=== PATIENT | female | born 1930 | race Caucasian/White ===

== ENCOUNTER 2016-07-15 11:34 | Inpatient (IN) | payer MEDICARE, OTHER, MEDICAID ==
[~2016-07-15] VITALS: Ht 162.6 cm; Wt 70.1 kg
[~2016-07-15 11:34] MED LIST: AC325T PO; ACET-2264 PO; ALPR.25T PO; ALPR.5T PO; AMT10T PO; ATN50T PO; BISM262O24 PO; CALC-719 PO; CAPS42.54 TOP; CEFD300C PO; CHOL200025 PO; CIME-48 PO; CRAN3875 PO; CYAN500L PO; DEXT1DRO7 OU; DOCU-243 PO; ESTR0.5T PO; ESTR1POW11 MC; FIBERSTAT PO; FLUT16SP NSEACH; FRSM40T PO; GUAI5SYR PO; HYDR-33 PO; HYDR-3702 PO; IPRA3AMP11 INH; LD5PT TOP; LOSA1TAB16 PO; LRT10T PO; MAGN400O7 PO; NFIPRATRNS NSEACH; NST15PW TOP; PALI1.5T PO; POLY17PO2 PO; POTA10TA10 PO; POTA20LI3 PO; SALS500T16 PO; SERT100T PO; SULF1TAB35 PO; TR025C15 EXT; TRAM100T26 PO; TRM50T PO; VERA180C2 PO; VERA180C4 PO; [UNRECOGNIZED DRUG - CODE] TOP; [UNRECOGNIZED DRUG - CODE] TOP
--- OUTSIDE RECORDS SUMMARY | 2016-07-15 11:39 | XMS REPORT | Continuity of Care Document ---
Author Author [facility] Address Unknown Phone Unavailable Allergies Active Description Code Type Severity Reaction Onset Reported/Identified Relationship to Patient Clinical Status Yes ALBERT Inhibitors [id number] Drug Allergy Unknown N/A 11/25/2015 Yes Antihistamines - Alkylamine [id number] Drug Allergy Unknown N/A 11/25/2015 Yes Penicillins [id number] Drug Allergy Unknown N/A 11/25/2015 Yes Sulfa (Sulfonamide Antibiotics) [id number] Drug Allergy Unknown N/A 11/25/2015 Medications Problems Date Dx Coded Attending Type Code Diagnosis Diagnosed By 09/06/2014 Ot V64.3 09/06/2014 ZEYNEP KINNEY MD Ot 296.80 BIPOLAR DISORDER, UNSPECIFIED 09/06/2014 ZEYNEP KINNEY MD Ot 307.9 SPECIAL SYMPTOM NEC/NOS 09/12/2014 Ot V64.3 10/27/2014 Ot V64.3 03/26/2015 DEXTER BRADFORD MD Ot B95.4 OTH STREPTOCOCCUS THE CAUSE OF DISEAS 03/26/2015 DEXTER BRADFORD MD Ot E86.0 DEHYDRATION 03/26/2015 DEXTER BRADFORD MD Ot E87.6 HYPOKALEMIA 03/26/2015 DEXTER BRADFORD MD Ot I10 ESSENTIAL (PRIMARY) HYPERTENSION 03/26/2015 DEXTER BRADFORD MD Ot I35.0 NONRHEUMATIC AORTIC (VALVE) STENOSIS 03/26/2015 DEXTER BRADFORD MD Ot I50.21 ACUTE SYSTOLIC (CONGESTIVE) HEART FAILUR 03/26/2015 DEXTER BRADFORD MD Ot J18.9 PNEUMONIA, UNSPECIFIED ORGANISM 03/26/2015 DEXTER BRADFORD MD Ot J80 ACUTE RESPIRATORY DISTRESS SYNDROME 03/26/2015 DEXTER BRADFORD MD Ot K59.00 CONSTIPATION, UNSPECIFIED 03/26/2015 DEXTER BRADFORD MD Ot M51.34 OTHER INTERVERTEBRAL DISC DEGENERATION, 03/26/2015 TYSON BOLAND MD, DEXTER Cabrera Ot M54.9 DORSALGIA, UNSPECIFIED 03/26/2015 DEXTER BRADFORD MD Ot N17.9 ACUTE KIDNEY FAILURE, UNSPECIFIED 03/26/2015 DEXTER BRADFORD MD Ot R33.9 RETENTION OF URINE, UNSPECIFIED 03/26/2015 DEXTER BRADFORD MD Ot W06.XXXA FALL FROM BED, INITIAL ENCOUNTER 03/26/2015 DEXTER BRADFORD MD Ot Y92.193 BEDROOM IN [facility] A 04/19/2015 Ot M79.602 04/19/2015 Ot W06.XXXA 04/19/2015 Ot Y92.129 04/20/2015 Ot M79.602 04/20/2015 Ot W06.XXXA 04/20/2015 Ot Y92.129 04/20/2015 RAGHU HENDRIX MD Ot I50.21 04/20/2015 RAGHU HENDRIX MD Ot J18.9 05/01/2015 RAGHU HENDRIX MD Ot I50.21 05/01/2015 RAGHU HENDRIX MD Ot J18.9 05/01/2015 Ot M79.602 05/01/2015 Ot W06.XXXA 05/01/2015 Ot Y92.129 05/23/2015 RAGHU HENDRIX MD Ot I50.21 05/23/2015 RAGHU HENDRIX MD Ot J18.9 06/20/2015 Ot V64.3 NO PROC FOR REASONS NEC 06/20/2015 Ot M79.602 PAIN IN LEFT ARM 06/20/2015 Ot W06.XXXA FALL FROM BED, INITIAL ENCOUNTER 06/20/[address] IN ALF PLACE 06/20/2015 RAGHU HENDRIX MD Ot I50.21 ACUTE SYSTOLIC (CONGESTIVE) HEART FAILUR 06/20/2015 RAGHU HENDRIX MD Ot J18.9 PNEUMONIA, UNSPECIFIED ORGANISM 06/20/2015 RAGHU HENDRIX MD Ot I50.21 ACUTE SYSTOLIC (CONGESTIVE) HEART FAILUR 06/20/2015 RAGHU HENDRIX MD Ot J18.9 PNEUMONIA, UNSPECIFIED ORGANISM 11/15/2015 CANDELARIO YANEZ, VESTA Lind Ot E87.6 HYPOKALEMIA 11/15/2015 VESTA PALOMINO DO Ot I10 ESSENTIAL (PRIMARY) HYPERTENSION 11/15/2015 PALOMINO DO VESTA Lind Ot I44.7 LEFT BUNDLE-BRANCH BLOCK, UNSPECIFIED 11/15/2015 PALOMINO DO VESTA Lind Ot R41.0 DISORIENTATION, UNSPECIFIED 11/15/2015 PALOMINO VESTA YANEZ Lelo Ot R60.9 EDEMA, UNSPECIFIED 11/15/2015 PALOMINO DO VESTA Lind Ot Z86.73 PRSNL HX OF TIA (TIA), AND CEREB INFRC W 11/26/2015 PALOMINO DO VESTA Lind Ot E87.6 HYPOKALEMIA 11/26/2015 PALOMINOVESTA Napoles DO Lelo Ot I10 ESSENTIAL (PRIMARY) HYPERTENSION 11/26/2015 PALOMINO DO VESTA Lind Ot I44.7 LEFT BUNDLE-BRANCH BLOCK, UNSPECIFIED 11/26/2015 CANDELARIO YANEZ VESTA Lelo Ot R41.0 DISORIENTATION, UNSPECIFIED 11/26/2015 PALOMINO DO, VESTA Lind Ot R60.9 EDEMA, UNSPECIFIED 11/26/2015 PALOMINO VESTA YANEZ Lelo Ot Z86.73 PRSNL HX OF TIA (TIA), AND CEREB INFRC W 11/27/2015 NEEL DAVIS, SHEKHAR Cabrera Ot I10 ESSENTIAL (PRIMARY) HYPERTENSION 11/27/2015 NEEL DAVIS, SHEKHAR Cabrera Ot I34.1 NONRHEUMATIC MITRAL (VALVE) PROLAPSE 11/27/2015 NEEL DAVIS, SHEKHAR Cabrera Ot I49.9 CARDIAC ARRHYTHMIA, UNSPECIFIED 11/27/2015 NEEL DAVIS, SHEKHAR Cabrera Ot N17.9 ACUTE KIDNEY FAILURE, UNSPECIFIED 11/27/2015 NEEL DAVIS, SHEKHAR Cabrera Ot R41.0 DISORIENTATION, UNSPECIFIED 11/27/2015 NEEL DAVIS, SHEKHAR Cabrera Ot S40.012A CONTUSION OF LEFT SHOULDER, INITIAL ENCO 11/27/2015 SHEKHAR SHAIKH MD Ot W19.XXXA UNSPECIFIED FALL, INITIAL ENCOUNTER 11/27/2015 SHEKHAR SHAIKH MD Ot Z51.5 ENCOUNTER FOR PALLIATIVE CARE 11/27/2015 SHEKHAR SHAIKH MD Ot Z91.81 HISTORY OF FALLING 11/28/2015 AMALIA POWELL MD Ot Z53.9 PROCEDURE AND TREATMENT NOT CARRIED OUT , 11/29/2015 AMALIA POWELL MD, Ot Z53.9 PROCEDURE AND TREATMENT NOT CARRIED OUT , 12/06/2015 LOKESH POWELL MD, Ot N39.0 URINARY TRACT INFECTION, SITE NOT SPECIF 12/24/2015 LOKESH POWELL MD, Ot N39.0 URINARY TRACT INFECTION, SITE NOT SPECIF 01/10/2016 LOKESH POWELL MD, Ot N39.0 URINARY TRACT INFECTION, SITE NOT SPECIF 01/14/2016 AMALIA POWELL MD, Ot Z53.9 PROCEDURE AND TREATMENT NOT CARRIED OUT , 01/16/2016 LOKESH POWELL MD, Ot N39.0 URINARY TRACT INFECTION, SITE NOT SPECIF 01/25/2016 LOKESH POWELL MD, Ot N39.0 URINARY TRACT INFECTION, SITE NOT SPECIF 01/31/2016 AMALIA POWELL MD, Ot Z53.9 PROCEDURE AND TREATMENT NOT CARRIED OUT , 01/31/2016 LOKESH POWELL MD, Ot N39.0 URINARY TRACT INFECTION, SITE NOT SPECIF 03/20/2016 RAGHU HENDRIX MD Ot I50.21 ACUTE SYSTOLIC (CONGESTIVE) HEART FAILUR 03/20/2016 RAGHU HENDRIX MD, Ot J18.9 PNEUMONIA, UNSPECIFIED ORGANISM Procedures Results Test Result Range UA CULTURE IF INDICATED* - 11/15/15 15:39 COLLECTION METHOD CLEAN CATCH Color of urine by auto Yellow Urine appearance determination Clear Urine pH measurement by automated test strip 6.5 5.0 - 8.0 Specific gravity of urine by automated test strip 1.015 1.005-1.030 Urine protein measurement by test strip (mass/volume) Negative Negative Urine glucose detection by automated test strip Negative Negative Urine erythrocytes count by automated test strip (number/volume) Negative Negative Urine ketones detection by automated test strip Trace Negative Urine nitrite detection by test strip Negative Negative Urine total bilirubin detection by automated test strip Negative Negative Urine urobilinogen measurement by automated test strip (mass/volume) 0.2 0.2-1.0 Urine leukocyte esterase detection by dipstick Negative Negative Complete blood count (CBC) with automated white blood cell (WBC) differential - 11/15/15 16:07 Blood automated leukocyte count 8.39 4.0 -11.0 Erythrocytes 4.54 4.00-5.00 12.0-16.0;g/dL 13.1 12.0-15.5 Hematocrit 38.20 35.00-45.00 Automated erythrocyte mean corpuscular volume 84 80-100 Mean corpuscular hemoglobin (MCH) determination 28.9 26.0-34.0 Automated erythrocyte mean corpuscular hemoglobin concentration measurement ( mass/volume) 34.3 31.0-37.0 Erythrocyte distribution width 14.3 11.8 -15.6 Automated blood platelet count 184 150- 450 Automated blood platelet mean volume measurement 11.6 6.0-9.5 Automated neutrophil percentage 61 51- 67 Lymphocytes/100 leukocytes 23 20-46 Automated monocyte percentage 12 3-11 Eosinophil count auto 3 0-4 Automated basophil percentage 1 0-2 Automated blood neutrophil count 5.1 Blood lymphocytes count (number/volume) 1.9 Automated blood monocyte count 1.0 Blood absolute eosinophil count 0.2 Basophils 0.1 LACTIC ACID - 11/15/15 16:07 LACTIC ACID 2.1 0.7-2.1 Prothrombin time (PT) with international normalized ratio (INR) - 11/15/15 16: 07 Prothrombin time (PT) in platelet poor plasma by coagulation assay 14.9 11.6-14.2 INR in platelet poor plasma by coagulation assay 1.2 0.8-1.4 Comprehensive metabolic panel - 11/15/15 16:07 Sodium measurement 123 70-110 Carbon dioxide measurement 29 22-29 Serum or plasma anion gap 20.4 3-15 BLOOD UREA NITROGEN 21 7-18 CREATININE SERUM 1.35 0.6-1.2 Brucella species antibody panel (IgG, IgM) 16 10-20 Estimated glomerular filtration rate (GFR) 45.0 Estimated glomerular filtration rate (GFR) non- 37.2 OSMOLALITY,CALCULATED 278 280-300 CALCIUM 10.5 8.8-10.8 Calculated ionized calcium measurement 4.2 3.8-4.6 BILIRUBIN,TOTAL 0.6 0.1-1.0 Serum or plasma alkaline phosphatase measurement 111 38-126 ASPARTATE AMINO TRANSFERASE 45 15-37 ALANINE AMINOTRANSFERASE 34 30-65 Serum or plasma total protein measurement 8.4 6.4-8.5 Serum or plasma albumin measurement 4.6 3.4-5.0 Serum or plasma albumin/globulin mass ratio 1.210 1.1-1.8 Serum or plasma creatine kinase measurement - 11/15/15 16:07 Serum or plasma creatine kinase measurement 53 30-135 Serum or plasma creatine kinase MB measurement - 11/15/15 16:07 Serum or plasma creatine kinase MB measurement 1.1 0.0-6.0 TROPONIN I* - 11/15/15 16:07 TROPONIN I 0.059 0.010-0.080 NT-Pro BNP - 11/15/15 16:07 NT-Pro BNP 756 0-450 THYROID STIMULATING HORMONE* - 11/15/15 16:07 THYROID STIMULATING HORMONE 2.55 0.46- 4.68 C REACTIVE PROTEIN* - 11/15/15 16:07 C REACTIVE PROTEIN* 1.20 0.0-0.9 Bacterial blood culture - 11/15/15 16:07 Bacterial blood culture NG5 UA CULTURE IF INDICATED* - 11/23/15 08:30 COLLECTION METHOD CLEAN CATCH Color of urine by auto Yellow Urine appearance determination Clear Urine pH measurement by automated test strip 7.5 5.0 - 8.0 Specific gravity of urine by automated test strip 1.015 1.005-1.030 Urine protein measurement by test strip (mass/volume) Negative Negative Urine glucose detection by automated test strip Negative Negative Urine erythrocytes count by automated test strip (number/volume) Negative Negative Urine ketones detection by automated test strip Negative Negative Urine nitrite detection by test strip Negative Negative Urine total bilirubin detection by automated test strip Negative Negative Urine urobilinogen measurement by automated test strip (mass/volume) 0.2 0.2-1.0 Urine leukocyte esterase detection by dipstick Negative Negative UA CULTURE IF INDICATED* - 11/25/15 20:40 COLLECTION METHOD CATHETER Color of urine by auto Dark Yellow Urine appearance determination Slightly Cloudy Urine pH measurement by automated test strip 6.0 5.0 - 8.0 Specific gravity of urine by automated test strip 1.020 1.005-1.030 Urine protein measurement by test strip (mass/volume) Negative Negative Urine glucose detection by automated test strip Negative Negative Urine erythrocytes count by automated test strip (number/volume) Negative Negative Urine ketones detection by automated test strip Negative Negative Urine nitrite detection by test strip Negative Negative Urine total bilirubin detection by automated test strip Negative Negative Urine urobilinogen measurement by automated test strip (mass/volume) 0.2 0.2-1.0 Urine leukocyte esterase detection by dipstick Negative Negative Complete blood count (CBC) with automated white blood cell (WBC) differential - 11/25/15 20:57 Blood automated leukocyte count 7.34 4.0 -11.0 Erythrocytes 4.35 4.00-5.00 12.0-16.0;g/dL 12.7 12.0-15.5 Hematocrit 36.80 35.00-45.00 Automated erythrocyte mean corpuscular volume 85 80-100 Mean corpuscular hemoglobin (MCH) determination 29.2 26.0-34.0 Automated erythrocyte mean corpuscular hemoglobin concentration measurement ( mass/volume) 34.5 31.0-37.0 Erythrocyte distribution width 14.9 11.8 -15.6 Automated blood platelet count 183 150- 450 Automated blood platelet mean volume measurement 11.7 6.0-9.5 Automated neutrophil percentage 61 51- 67 Lymphocytes/100 leukocytes 22 20-46 Automated monocyte percentage 13 3-11 Eosinophil count auto 3 0-4 Automated basophil percentage 1 0-2 Automated blood neutrophil count 4.5 Blood lymphocytes count (number/volume) 1.6 Automated blood monocyte count 1.0 Blood absolute eosinophil count 0.2 Basophils 0.0 Comprehensive metabolic panel - 11/25/15 20:57 Sodium measurement 104 70-110 Carbon dioxide measurement 27 22-29 Serum or plasma anion gap 18.9 3-15 BLOOD UREA NITROGEN 16 7-18 CREATININE SERUM 1.45 0.6-1.2 Brucella species antibody panel (IgG, IgM) 11 10-20 Estimated glomerular filtration rate (GFR) 41.4 Estimated glomerular filtration rate (GFR) non- 34.2 OSMOLALITY,CALCULATED 277 280-300 CALCIUM 10.0 8.8-10.8 Calculated ionized calcium measurement 4.1 3.8-4.6 BILIRUBIN,TOTAL 0.5 0.1-1.0 Serum or plasma alkaline phosphatase measurement 111 38-126 ASPARTATE AMINO TRANSFERASE 37 15-37 ALANINE AMINOTRANSFERASE 28 30-65 Serum or plasma total protein measurement 8.0 6.4-8.5 Serum or plasma albumin measurement 4.0 3.4-5.0 Serum or plasma albumin/globulin mass ratio 1.000 1.1-1.8 TROPONIN I* - 11/25/15 20:57 TROPONIN I 0.044 0.010-0.080 FOLIC ACID - 11/25/15 20:57 Serum or plasma folate measurement (mass/volume) 3.5 7.0-31.4 Serum or plasma vitamin B12 measurement (mass/volume) - 11/25/15 20:57 Serum or plasma vitamin B12 measurement (mass/volume) 596 213-816 Qualitative serum rapid plasma reagin (RPR) test - 11/25/15 20:57 Qualitative serum rapid plasma reagin (RPR) test Non- reactive Complete blood count (CBC) with automated white blood cell (WBC) differential - 11/26/15 06:13 Blood automated leukocyte count 6.43 4.0 -11.0 Erythrocytes 3.96 4.00-5.00 12.0-16.0;g/dL 11.4 12.0-15.5 Hematocrit 33.40 35.00-45.00 Automated erythrocyte mean corpuscular volume 84 80-100 Mean corpuscular hemoglobin (MCH) determination 28.8 26.0-34.0 Automated erythrocyte mean corpuscular hemoglobin concentration measurement ( mass/volume) 34.1 31.0-37.0 Erythrocyte distribution width 14.7 11.8 -15.6 Automated blood platelet count 160 150- 450 Automated blood platelet mean volume measurement 11.5 6.0-9.5 Automated neutrophil percentage 67 51- 67 Lymphocytes/100 leukocytes 18 20-46 Automated monocyte percentage 10 3-11 Eosinophil count auto 4 0-4 Automated basophil percentage 1 0-2 Automated blood neutrophil count 4.3 Blood lymphocytes count (number/volume) 1.2 Automated blood monocyte count 0.7 Blood absolute eosinophil count 0.2 Basophils 0.0 TROPONIN I* - 11/26/15 06:13 TROPONIN I 0.056 0.010-0.080 Comprehensive metabolic panel - 11/26/15 06:13 Sodium measurement 96 70-110 Carbon dioxide measurement 24 22-29 Serum or plasma anion gap 14.7 3-15 BLOOD UREA NITROGEN 13 7-18 CREATININE SERUM 1.21 0.6-1.2 Brucella species antibody panel (IgG, IgM) 11 10-20 Estimated glomerular filtration rate (GFR) 51.0 Estimated glomerular filtration rate (GFR) non- 42.2 OSMOLALITY,CALCULATED 278 280-300 CALCIUM 9.2 8.8-10.8 Calculated ionized calcium measurement 4.2 3.8-4.6 BILIRUBIN,TOTAL 0.5 0.1-1.0 Serum or plasma alkaline phosphatase measurement 86 38-126 ASPARTATE AMINO TRANSFERASE 33 15-37 ALANINE AMINOTRANSFERASE 29 30-65 Serum or plasma total protein measurement 6.8 6.4-8.5 Serum or plasma albumin measurement 3.2 3.4-5.0 Serum or plasma albumin/globulin mass ratio 0.888 1.1-1.8 TROPONIN I* - 11/26/15 10:58 TROPONIN I 0.058 0.010-0.080 Encounters ACCT No. Visit Date/Time Discharge Status Pt. Type Provider Facility Loc./Unit Complaint [id number] 11/25/2015 22:10:00 2015 13:30:00 DIS Inpatient NEEL DAVIS, [facility] MED/SURG CONFUSION, TACHYCARDIA [id number] 11/15/2015 15:04:00 2015 18:21:00 DIS Emergency CANDELARIO YANEZ, [facility] ED [id number] 03/21/2015 19:30:00 2015 15:19:00 DIS Inpatient TYSON BOLAND MD, [facility] MED/SURG [id number] 09/06/2014 21:30:00 2014 23:19:00 [id number] 11/23/2015 08:22:00 ACT Outpatient ANDRE DAVIS, LOKESH [facility] LAB LAB DROP OFF FROM [facility] [id number] 11/22/2015 14:52:00 ACT Outpatient ANDRE DAVIS, AMALIA [facility] LAB [id number] 03/30/2015 08:21:00 ACT Outpatient SIMEON DAVIS , RAGHU [facility] RAD [id number] 03/21/2015 17:36:00 Document Registration [id number] 03/19/2012 10:25:00 Document Registration
--- OUTSIDE RECORDS SUMMARY | 2016-07-15 11:43 | XMS REPORT | Continuity of Care Document ---
Author Author [facility] Address Unknown Phone Unavailable Allergies Active Description Code Type Severity Reaction Onset Reported/Identified Relationship to Patient Clinical Status Yes ALBERT Inhibitors [id number] Drug Allergy Unknown N/A 11/25/2015 Yes Antihistamines - Alkylamine [id number] Drug Allergy Unknown N/A 11/25/2015 Yes Penicillins [id number] Drug Allergy Unknown N/A 11/25/2015 Yes Sulfa (Sulfonamide Antibiotics) [id number] Drug Allergy Unknown N/A 11/25/2015 Medications Problems [...] DEXTER BRADFORD MD Ot Y92.193 BEDROOM IN [facility] A 04/19/2015 Ot M79.602 04/19/2015 [...] ENCOUNTER 06/20/[address] IN GROUP HOME PLACE 06/20/2015 RAGHU HENDRIX MD Ot I50.21 [...] URINARY TRACT INFECTION, SITE NOT SPECIF 01/31/2016 AAMLIA POWELL MD, Ot Z53.9 PROCEDURE AND TREATMENT [...] Status Pt. Type Provider Facility Loc./Unit Complaint [id number] 11/25/2015 22:10:00 2015 13:30:00 DIS Inpatient NEEL DAVIS, [facility] MED/SURG CONFUSION, TACHYCARDIA [id number] 11/15/2015 15:04:00 2015 18:21:00 DIS Emergency CANDELARIO YANEZ, [facility] ED [id number] 03/21/2015 19:30:00 2015 15:19:00 DIS Inpatient TYSON BOLAND MD, [facility] MED/SURG [id number] 09/06/2014 21:30:00 2014 23:19:00 [facility] [id number] 11/23/2015 08:22:00 ACT Outpatient ANDRE DAVIS, LOKESH [facility] LAB LAB DROP OFF FROM [facility] [id number] 11/22/2015 14:52:00 ACT Outpatient ANDRE DAVIS, AMALIA [facility] LAB [id number] 03/30/2015 08:21:00 ACT Outpatient SIMEON DAVIS , RAGHU [facility] RAD [id number] 03/21/2015 17:36:00 Document Registration [id number] 03/19/2012 10:25:00 Document Registration
[2016-07-15 12:13] LABS: BASOPHILS % (AUTO) 0 % (0-2); EOSINOPHILS # (AUTO) 0.3 10^3uL; EOSINOPHILS % (AUTO) 4 % (0-4); LYMPHOCYTES # (AUTO) 0.5 X10^3; MEAN PLATELET VOLUME 10.3 FL (6.0-9.5); MONOCYTES # (AUTO) 0.5 X10^3; MONOCYTES % (AUTO) 6 % (3-11); NEUTROPHILS # (AUTO) 6.9 X10^3; NEUTROPHILS % (AUTO) 84 % (51-67); PLATELET COUNT 207 10^3uL (150-450)
[2016-07-15 12:14] LABS: MEAN CORPUSCULAR HEMOGLOBIN 24.3 PG (26.0-34.0); MEAN CORPUSCULAR HGB CONC 31.4 g/dL (31.0-37.0); MEAN CORPUSCULAR VOLUME 78 FL (80-100)
[2016-07-15 12:31] LABS: ALBUMIN 3.6 g/dL (3.4-5.0); ANION GAP 16.3 MEQ/L (3-15); CALCULATED IONIZED CALCIUM 3.9 mg/dL (3.8-4.6)
--- NOTE | 2016-07-15 13:33 | Diagnostic Imaging Report ---
INDICATION: Shortness of breath. FINDINGS: There are five-lobe interstitial infiltrates, thickening of the central airways, vascular congestion, cardiomegaly, and poor inspiratory volume all reflecting new findings from prior. There is a small left pleural effusion also new. There is no pneumothorax. IMPRESSION: Poor inspiration, small left effusion, cardiomegaly, vascular congestion, and likely pulmonary edema. There is substantial thickening of the central airways and peribronchial cuffing suggestive of an element of reactive airway disease superimposed. Dictated by: Dictated on workstation # [id number]
[2016-07-15] MEDS ORDERED: SODIUM CHLORIDE FLUSH 3 ML SYR IV PRN (14:00)
[2016-07-15] MEDS ORDERED: PRD10T PO (14:19)
[2016-07-15] MEDS ORDERED: PALI6TAB6 PO (14:19)
[2016-07-15] MEDS ORDERED: CETI10TA20 PO (14:19)
[2016-07-15] MEDS ORDERED: POTA10TA10 PO (14:19)
[2016-07-15] MEDS ORDERED: MIRT15TA98 PO (14:19)
[2016-07-15] MEDS ORDERED: DXZS2T PO (14:19)
[2016-07-15] MEDS ORDERED: LSRT50T PO (14:19)
[2016-07-15] MEDS ORDERED: LORA0.5T PO (14:19)
[2016-07-15] MEDS ORDERED: HYDR-3702 PO (14:19)
[2016-07-15] MEDS ORDERED: FURO40TA4 PO (14:19)
[2016-07-15 14:45] VITALS: BP 129/70
[2016-07-15] MEDS ORDERED: ONDANSETRON 4 MG (ZOFRAN) ORAL DISSOLVE TAB PO PRN (14:45)
[2016-07-15] MEDS ORDERED: POLYETHYLENE GLYCOL 17 GM (MIRALAX) PACKET PO PRN (14:45)
[2016-07-15] MEDS ORDERED: DOCUSATE SODIUM 100 MG (COLACE) CAP PO PRN (14:45)
[2016-07-15] MEDS ORDERED: MAG HYDROX/AL HYDROX/SIMETH 200-200-20/5 ML (MAG-AL PLUS) 30 ML UDC PO PRN (14:45)
[2016-07-15] MEDS ORDERED: MAGNESIUM HYDROXIDE 80MG/ML (MILK OF MAGNESIA) 30 ML UDC PO PRN (14:45)
[2016-07-15] MEDS ORDERED: ACETAMINOPHEN 325 MG TAB (TYLENOL) PO PRN (14:45)
[2016-07-15] MEDS ORDERED: CALCIUM CARBONATE CHEWABLE 300 MG (TUMS) TABLET PO PRN (14:45)
[2016-07-15] MEDS ORDERED: PROMETHAZINE HCL INJ 12.5 MG in SODIUM CHLORIDE 25 ML IV PRN (14:45)
--- NOTE | 2016-07-15 14:45 | NUR ---
Admit to room 311 from ED. Is alert and oriented to person and place. Knows month of year. Daughter, Luciana is present. Please see admission assessment.
[2016-07-15 14:49] LABS: MAGNESIUM* 2.1 mg/dL (1.6-2.3)
[2016-07-15 15:32] VITALS: BP 129/70
--- NOTE | 2016-07-15 16:30 | NUR ---
Patient has had echo done and is tired. Rolled to let me look at skin condition on buttocks. Skin is reddened. Has a <0.5 cm scab just posterior to rectum.
[2016-07-15] MEDS ORDERED: SODIUM CHLORIDE 100 ML ONE (16:42)
[2016-07-15] MEDS: SODIUM CHLORIDE FLUSH 10 ML SYR IV PRN (16:46)
[2016-07-15] MEDS: FUROSEMIDE 100 MG/10 ML (LASIX) VIAL IV SCH (16:47)
[2016-07-15] MEDS: cefTRIAXone SODIUM 1,000 MG in SODIUM CHLORIDE 50 ML IV SCH (16:59)
[2016-07-15] MEDS: AZITHROMYCIN VIAL 500 MG in SODIUM CHLORIDE 250 ML IV SCH (17:31)
--- NOTE | 2016-07-15 17:39 | History and Physical (E) ---
History & Physical PCP: Tarik Ruiz MD CC: Shortness of breath HPI Sarah Cullen is a 86 year old female admitted from ED 07/15 where she presented from shelter for shortness of breath. Reportedly up to bathroom last night and was dyspneic with SpO2 70% on room air. Placed on 4 L oxygen which helped but this AM again had low SpO2 with activity (getting dressed.) Has increased fatigue, has cough. Denied chest pain. In ED, afebril with HR 113 , RR 20, BP 104/53, SpO2 86% RA. CBC notable for mild anemia. WBC was not elevated but 84% N. On chemistry, Cr 1.33, troponin 0.061, NT-pro-BNP 9900. Urine was not checked. CXR suggestive of failure, perhaps also some reactive airway disease (see report.) No therapies were given in the ED. She was admitted for further management. On arrival to unit, patient is somnolent and snoring. Stirs to exam. Smiles and is pleasant and interactive. Denies pain. Denies feeling fevered or chilled. Endorses cough that is not productive. Feels short of breath, she says. Feels she just has no energy. She nods off readily and doesn't provide much more detail. Daughter arrives and provides additional history. Says her mother was on hospice after her hospitalization here 1 year ago. However, she improved during that time and was discharged from their service after 3 months. Since then has been going fairly well at shelter. Quality of life has been OK. Daughter noticed a change on 07/06 (Mother's Day) that patient was a bit agitated. Had been taking paliperidone and with this mood change, PCP increased dose. Staff at shelter called daughter today because of new leg edema, fatigue, weakness, and dyspnea. PMH * Hyperlipidemia. * Hypertension. * Obesity. * Bipolar disorder and h/o psychosis. * Anxiety. * Aortic stenosis * Systolic congestive heart failure * Falls * Atrial fibrillation (intermittent) * Shingles * Degenerative disc disease * Vertebral compression fractures PSH * Cholecystectomy. * Hysterectomy. ALLERGIES: Please see list at end of report. HOME MEDICATIONS: Please see list at end of report. FH Father had stroke. SH Lives at [facility]. No alcohol or tobacco use. ROS Difficult to obtain from patient because she nods off during exam. OBJECTIVE Vital Signs Date Time Temp Pulse Resp B/P Pulse Ox O2 Delivery O2 Flow Rate FiO2 07/15/16 11:50 98.6 113 20 104/53 86 Room Air GEN: Resting in bed, somnolent but stirs to exam. HEENT: EOMI, pupils equal, some scleral thinning. Dry oral mucosa. CV: Tachy, irregular with vibratory murmur, systolic, III/ at LSB. LUNGS: Diminished bases with some faint, intermittent rales in right base. ABD: Soft, NT/ND with normal bowel sounds. EXTR: Warm, dry, well-perfused. 2+ BLE edema. INTEG: No rash. Age related changes. NEURO: No focal motor neuro deficit. Psychomotor slowing. Weight: 72 kg Laboratory Results-14 Days 07/15/16 12:06: Alanine Aminotransferase (ALT/SGPT) 25L, Albumin 3.6, Albumin/Globulin Ratio 1.058L, Alkaline Phosphatase 80, Anion Gap 16.3H, Aspartate Amino Transf (AST/ SGOT) 41H, BUN/Creatinine Ratio 26H, Basophils # (Auto) 0.0, Basophils (%) (Auto ) 0, Blood Urea Nitrogen 35#H, Calcium Level 8.9, Calcium/Ionized Calcium Ratio 3.9, Calculated Osmolality 286, Carbon Dioxide Level 23, Chloride Level 108, Creatinine 1.33H, Eosinophils # (Auto) 0.3, Eosinophils (%) (Auto) 4, Estimat Glomerular Filtration Rate 45.7, Estimated GFR (Non- 37.7, Glucose Level 148#H, Hematocrit 32.50L, Hemoglobin 10.2L, Lactic Acid Level 1.6 , Lymphocytes # (Auto) 0.5, Lymphocytes (%) (Auto) 6L, Mean Corpuscular Hemoglobin 24.3L, Mean Corpuscular Hemoglobin Concent 31.4, Mean Corpuscular Volume 78L, Mean Platelet Volume 10.3H, Monocytes # (Auto) 0.5, Monocytes (%) ( Auto) 6, XO-Qme-P-Type Natriuretic Peptide 9900H, Neutrophils # (Auto) 6.9, Neutrophils (%) (Auto) 84H, Platelet Count 207, Potassium Level 4.0, Red Blood Count 4.19, Red Cell Distribution Width 18.2H, Sodium Level 143, Total Bilirubin 0.7, Total Protein 7.0, Troponin I 0.061, White Blood Count 8.20 MICRO 07/15 Blood culture PENDING EKG 07/15 ST with left axis. No electrical alternans. No diffuse ST changes. IMAGING 07/15/2016 ECHO: PENDING. Technologist prelim: Global hypokinesis. Moderate to severe MR. Moderate to severe . Severe TR. Moderate to large pericardia effusion with some septations. 07/15/16 CHEST 1 VIEW, AP/PA ONLY* INDICATION: Shortness of breath. FINDINGS: There are five-lobe interstitial infiltrates, thickening of the central airways , vascular congestion, cardiomegaly, and poor inspiratory volume all reflecting new findings from prior. There is a small left pleural effusion also new. There is no pneumothorax. IMPRESSION: Poor inspiration, small left effusion, cardiomegaly, vascular congestion, and likely pulmonary edema. There is substantial thickening of the central airways and peribronchial cuffing suggestive of an element of reactive airway disease superimposed. REFERENCE 03/22/2015 ECHO: Summary: Biatrial enlargement. RV enlargement. Normal LV wall thickness. Preserved LV systolic function, with EF greater than 60%. Mitral annular calcification with moderate mitral insufficiency. Moderate aortic stenosis with mean gradient 19 mmHg; no significant aortic insufficiency. Moderate tricuspid insufficiency. Moderate pulmonary hypertension with PA systolic pressure 58 mmHg. No pericardial effusion. ASSESSMENT Sarah Cullen is a 86 year old female admitted from ED 07/15 with acute respiratory failure attributed to acute systolic congestive heart failure, likely related to worsening aortic stenosis. Preliminary echo showed pericardial effusion but her EKG did not show electrical alternans but she had pulsus paradoxus with pressure difference of 15 mmHg. There was some concern for underlying pneumonia as well. She has numerous chronic problems. PLAN * Acute Respiratory Failure: Attributed primarily to heart failure. Pneumonia of concern as well. Treat underlying causes. 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 Prelim echo shows LVEF down to 30%. NT-pro- BNP 9900 on admit. Poor prognosis. Daughter and patient would not want valvular surgery. Medical management with furosemide, afterload reduction. Daily weight, I&O. * Pericardial Effusion: Considered heart failure, viral/bacterial. Echo prelim says there are some septations. Noted CRP is 6.00. No electrical alternans nor diffuse ST changes on EKG. Mild pulsus paradoxus at 15 mmHg. Monitor closely for signs of tamponade. * Community Acquired Pneumonia: Blood culture pending. Sputum pending sample. Empiric ceftriaxone, azithromycin. * Acute Kidney Injury: Mild, Cr 1.33 on admit. Monitor with diuresis. * Deconditioning: Defer PT/OT for now because of aortic stenosis. * F/E/N: General diet. (Deferred sodium restriction because of poor prognosis... palliation.) Peripheral IV. I&O, daily weight. * Prophylaxis: Enoxaparin * Code Status: Full code. Discussed with daughter at time of admission and she says her mother does want to be a full code. Daughter understands the overall poor prognosis. * Disposition: Inpatient. Expect 4 day stay. Poor prognosis. CHRONIC ISSUES Home medications to be reviewed. From prior admit: * Bipolar mood disorder: Paliperidone. * Insomnia: Mirtazapine * Depression: Sertraline * Anxiety: Lorazepam * HTN: Doxazosin, losartan. Not on beta leanne. * Insomnia: Observe * Back Pain, Diffuse Degenerative Disc Disease, Moderate thoracic spinal stenosis, Lumbar Neuroforaminal Stenosis: [place] Allergies/Home Medications Allergies: Coded Allergies: ALBERT Inhibitors (Verified Allergy, Unknown, 07/15/16) Antihistamines - Alkylamine (Verified Allergy, Unknown, 07/15/16) Penicillins (Verified Allergy, Unknown, 07/15/16) Sulfa (Sulfonamide Antibiotics) (Verified Allergy, Unknown, 07/15/16) Reported Home Medications Scheduled Cetirizine HCl (Zyrtec) 10 MG PO HS (Reported) Dextran 70/Hypromellose (Artificial Tears Eye Drops) 1 EACH OU QID (Reported) Dimethicone/Colloidal Oatmeal (Aveeno Daily Moisturizing Lot) 1 APPLIC TOP BID ( Reported) Doxazosin Mesylate (Doxazosin Mesylate) 2 MG PO HS (Reported) Furosemide (Furosemide) 40 MG PO BID@0900,1200 (Reported) Hydrocodone/Acetaminophen ([place] 5mg/325mg) 1 TAB PO DAILY (Reported) Losartan Potassium (Losartan Potassium) 50 MG PO DAILY (Reported) Mirtazapine (Mirtazapine) 15 MG PO HS (Reported) Paliperidone (Paliperidone ER) 6 MG PO HS (Reported) Potassium Chloride (Potassium Chloride) 20 MEQ PO DAILY@1800 (Reported) Prednisone (Deltasone) 10 MG PO DAILY (Reported) Salsalate (Salsalate) 500 MG PO TID (Reported) Sertraline HCl (Zoloft) 150 MG PO DAILY (Reported) Scheduled PRN Acetaminophen (Acetaminophen) 325-650 MG PO Q4H PRN PRN PAIN Eucerin (Eucerin) 1 APPLIC TOP UD PRN PRN PRN (Reported) Hydrocodone/Acetaminophen (ED- [place] 5/325mg #6) 1 TAB PO Q6H PRN PRN PAIN Lorazepam (Lorazepam) 0.5 MG PO Q2H PRN PRN ANXIETY (Reported) Magnesium Hydroxide (Milk of Magnesia 400mg/5ml) 30 ML PO BID PRN PRN CONSTIPATION Tramadol HCl (Tramadol HCl) 50 MG PO BID PRN PRN PAIN (Reported) Discontinued Medications Amitriptyline HCl (Elavil) 10 MG PO HS (Reported) Discontinued Reason: Update list Capsaicin (Capzasin-P) 1 APPLIC TOP QID PRN PRN PAIN IN JOINT,HAND (Reported) Discontinued Reason: Update list Lidocaine HCl (Lidoderm 5% Patch) 2 EA TOP BID (Reported) Discontinued Reason: Update list Nystatin (Nystatin) 1 APPLIC TOP TID (Reported) Discontinued Reason: Update list Paliperidone (Invega) 1.5 MG PO HS (Reported) Discontinued Reason: Dose changed Copies to: End of Report . RAGHU HENDRIX MD July 15, 2016 13:50
--- NOTE | 2016-07-15 18:11 | NUR ---
MED REC COMPLETE--current med list obtained from list provided by [facility].
--- NOTE | 2016-07-15 19:00 | NUR ---
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
[2016-07-15 20:08] VITALS: BP 98/56
--- NOTE | 2016-07-15 20:30 | NUR ---
Guardado catheter inserted with sterile technique, explained to pt prior. Clear yellow urine returned. Secured per policy.
[2016-07-15] MEDS ORDERED: LORazepam 0.5 MG (ATIVAN) TABLET PO PRN (20:40)
[2016-07-15] MEDS ORDERED: [UNRECOGNIZED DRUG - OTHER] PO SCH (21:00)
[2016-07-15] MEDS ORDERED: doxAzosin 4 MG (CARDURA) TAB ONE (21:28)
--- NOTE | 2016-07-15 21:30 | NUR ---
Pt ready to rest, denies pain or dyspnea at present. Lungs clear. Abdomen soft. Guardado draining. Call light in reach. Pt positioned per request. Will round frequently for cares.
[2016-07-15] MEDS: doxAzosin 2 MG (CARDURA) TAB PO SCH (21:33)
[2016-07-15] MEDS: MIRTAZAPINE 15 MG (REMERON) TABLET PO SCH (21:34)
[2016-07-16 00:05] VITALS: BP 142/82
[2016-07-16] MEDS ORDERED: LORazepam 1 MG (ATIVAN) TABLET ONE (01:21)
--- NOTE | 2016-07-16 05:15 | NUR ---
Telemetry reports pt is A Fib 110-120's, with a couple 30 sec runs of 150's. Pt sleeping, even, unlabored respirations noted. Will monitor closely.
[2016-07-16 05:59] LABS: BASOPHILS % (AUTO) 0 % (0-2); EOSINOPHILS # (AUTO) 0.6 10^3uL; EOSINOPHILS % (AUTO) 7 % (0-4); LYMPHOCYTES # (AUTO) 0.7 X10^3; MEAN PLATELET VOLUME 10.9 FL (6.0-9.5); MONOCYTES # (AUTO) 0.6 X10^3; MONOCYTES % (AUTO) 7 % (3-11); NEUTROPHILS # (AUTO) 6.2 X10^3; NEUTROPHILS % (AUTO) 76 % (51-67); PLATELET COUNT 215 10^3uL (150-450); WHITE BLOOD COUNT 8.13 10^3uL (4.0-11.0)
[2016-07-16 06:10] LABS: MEAN CORPUSCULAR HEMOGLOBIN 24.4 PG (26.0-34.0); MEAN CORPUSCULAR HGB CONC 31.2 g/dL (31.0-37.0); MEAN CORPUSCULAR VOLUME 78 FL (80-100)
[2016-07-16 06:25] LABS: ALBUMIN 3.3 g/dL (3.4-5.0)
--- NOTE | 2016-07-16 06:29 | NUR ---
Pt continues to rest quietly in bed, even unlabored respirations. Call light in reach.
[2016-07-16 07:30] VITALS: BP 121/73
--- NOTE | 2016-07-16 07:35 | NUR ---
Patient sitting up in bed watching TV upon shift assessment. Alert and oriented to self and place but not situation. Denies pain, palpitations, SOA, or other distress. Respirations even and non-labored on 3L of . Telemetry intact and reflecting a-fib at a rate of 115-[address] Maier notified of consistent tachycardia, no new order received. Trace edema noted to BLE. Reoriented to situation. Updated on plan of care for shift. Will continue to monitor.
[2016-07-16] MEDS: LOSARTAN 50 MG (COZAAR) TABLET PO SCH (08:25)
[2016-07-16] MEDS: FUROSEMIDE 100 MG/10 ML (LASIX) VIAL IV SCH (08:25)
[2016-07-16] MEDS: predniSONE 10 MG (DELTASONE) TABLET PO SCH (08:25)
[2016-07-16] MEDS: ENOXAPARIN 30 MG/0.3 ML (LOVENOX) SYR SC SCH (08:25)
[2016-07-16] MEDS: SERTRALINE 100 MG (ZOLOFT) TABLET PO SCH (08:25)
--- NOTE | 2016-07-16 09:49 | Progress Note (E) ---
Progress Note SUBJECTIVE Much more awake and alert and interactive today. Able to attend conversation. Oriented to place and time. Reminded her of her situation. HR variable but tachy at times, 120's this AM. Tele shows afib with RVR at times. On 3 L oxygen. Good diuresis 2400 ml yesterday. Guardado intact. OBJECTIVE Vital Signs Date Time Temp Pulse Resp B/P Pulse Ox O2 Delivery O2 Flow Rate FiO2 07/16/16 08:34 122 07/16/16 07:30 97.4 24 121/73 93 Nasal cannula I & O 07/15/16 07/16/16 Cumulative From/Thru 19:00 07:00 07/15/16 11:50 - 07/16/16 06:05 Intake Total 800 ml 800 ml Output Total 2400 ml 2400 ml Balance -1600 ml -1600 ml GEN: Awake, resting in chair. Interactive, pleasant. HEENT: EOMI, pupils equal, some scleral thinning. Dry oral mucosa. CV: Tachy, irregular with vibratory murmur, systolic, III/ at LSB. Afib on tele. LUNGS: Diminished bases with some faint, intermittent rales in left base. ABD: Soft, NT/ND with normal bowel sounds. : Guardado EXTR: Warm, dry, well-perfused. 2+ BLE edema. INTEG: No rash. Age related changes. NEURO: No focal motor neuro deficit. Psychomotor slowing. Weight: 68.8 kg (72 kg on admit) MICRO 07/15 Blood culture PENDING EKG 07/15 ST with left axis. No electrical alternans. No diffuse ST changes. IMAGING 07/15/2016 ECHO: PENDING. Technologist prelim: Global hypokinesis. Moderate to severe MR. Moderate to severe . Severe TR. Moderate to large pericardia effusion with some septations. 07/15/16 CHEST 1 VIEW, AP/PA ONLY* INDICATION: Shortness of breath. FINDINGS: There are five-lobe interstitial infiltrates, thickening of the central airways , vascular congestion, cardiomegaly, and poor inspiratory volume all reflecting new findings from prior. There is a small left pleural effusion also new. There is no pneumothorax. IMPRESSION: Poor inspiration, small left effusion, cardiomegaly, vascular congestion, and likely pulmonary edema. There is substantial thickening of the central airways and peribronchial cuffing suggestive of an element of reactive airway disease superimposed. REFERENCE 03/22/2015 ECHO: Summary: Biatrial enlargement. RV enlargement. Normal LV wall thickness. Preserved LV systolic function, with EF greater than 60%. Mitral annular calcification with moderate mitral insufficiency. Moderate aortic stenosis with mean gradient 19 mmHg; no significant aortic insufficiency. Moderate tricuspid insufficiency. Moderate pulmonary hypertension with PA systolic pressure 58 mmHg. No pericardial effusion. Lab-Past 14 Days, 35 Results 07/15/16 12:06: Alanine Aminotransferase (ALT/SGPT) 25L, Albumin 3.6, Albumin/Globulin Ratio 1.058L, Alkaline Phosphatase 80, Anion Gap 16.3H, Aspartate Amino Transf (AST/ SGOT) 41H, BUN/Creatinine Ratio 26H, Basophils # (Auto) 0.0, Basophils (%) (Auto ) 0, Blood Urea Nitrogen 35#H, C-Reactive Protein 6.00H, Calcium Level 8.9, Calcium/Ionized Calcium Ratio 3.9, Calculated Osmolality 286, Carbon Dioxide Level 23, Chloride Level 108, Creatinine 1.33H, Eosinophils # (Auto) 0.3, Eosinophils (%) (Auto) 4, Estimat Glomerular Filtration Rate 45.7, Estimated GFR (Non- 37.7, Glucose Level 148#H, Hematocrit 32.50L, Hemoglobin 10.2L, Lactic Acid Level 1.6, Lymphocytes # (Auto) 0.5, Lymphocytes ( %) (Auto) 6L, Magnesium Level 2.1, Mean Corpuscular Hemoglobin 24.3L, Mean Corpuscular Hemoglobin Concent 31.4, Mean Corpuscular Volume 78L, Mean Platelet Volume 10.3H, Monocytes # (Auto) 0.5, Monocytes (%) (Auto) 6, BA-Adi-F-Type Natriuretic Peptide 9900H, Neutrophils # (Auto) 6.9, Neutrophils (%) (Auto) 84H , Platelet Count 207, Potassium Level 4.0, Red Blood Count 4.19, Red Cell Distribution Width 18.2H, Sodium Level 143, Total Bilirubin 0.7, Total Protein 7.0, Troponin I 0.061, White Blood Count 8.20 07/16/16 05:15: Albumin 3.3L, Anion Gap 11.0, Basophils # (Auto) 0.0, Basophils (%) (Auto) 0, Blood Urea Nitrogen 39H, Calcium Level 8.9, Carbon Dioxide Level 29, Chloride Level 111H, Creatinine 1.46H, Eosinophils # (Auto) 0.6, Eosinophils (%) (Auto) 7H, Estimat Glomerular Filtration Rate 41.0, Estimated GFR (Non- 33.9, Glucose Level 98#, Hematocrit 30.80L, Hemoglobin 9.6L, Lymphocytes # (Auto) 0.7, Lymphocytes (%) (Auto) 9L, Mean Corpuscular Hemoglobin 24.4L, Mean Corpuscular Hemoglobin Concent 31.2, Mean Corpuscular Volume 78L, Mean Platelet Volume 10.9H, Monocytes # (Auto) 0.6, Monocytes (%) ( Auto) 7, Neutrophils # (Auto) 6.2, Neutrophils (%) (Auto) 76H, Platelet Count 215, Potassium Level 3.7, Red Blood Count 3.94L, Red Cell Distribution Width 18.3H, Sodium Level 148, White Blood Count 8.13, Phosphorus Level 4.6# ASSESSMENT Sarah Cullen is a 86 year old female admitted from ED 07/15 with acute respiratory failure attributed to acute systolic congestive heart failure, likely related to worsening aortic stenosis. Preliminary echo showed pericardial effusion but her EKG did not show electrical alternans but she had pulsus paradoxus with pressure difference of 15 mmHg. There was some concern for underlying pneumonia as well. She has numerous chronic problems. PLAN * Acute Respiratory Failure: Attributed primarily to heart failure. Pneumonia of concern as well. Treat underlying causes. 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 Prelim echo shows LVEF down to 30%. NT-pro- BNP 9900 on admit. Poor prognosis. Daughter and patient would not want valvular surgery. Medical management with furosemide, afterload reduction. Daily weight, I&O. * Atrial Fibrillation with RVR: New diagnosis? Review history. Not previously on rate controlling medication. IV digoxin load, then daily PO digoxin. Monitor tele. * Pericardial Effusion: Considered heart failure, viral/bacterial. Echo prelim says there are some septations. Noted CRP is 6.00. No electrical alternans nor diffuse ST changes on EKG. Mild pulsus paradoxus at 15 mmHg. Monitor closely for signs of tamponade. * Community Acquired Pneumonia: Blood culture pending. Sputum pending sample. Empiric ceftriaxone, azithromycin. * Acute Kidney Injury: Mild, Cr 1.33 on admit. Monitor with diuresis. * Deconditioning: Defer PT/OT for now because of aortic stenosis. * F/E/N: General diet. (Deferred sodium restriction because of poor prognosis... palliation.) Peripheral IV. I&O, daily weight. * Prophylaxis: Enoxaparin * Code Status: Full code. Discussed with daughter at time of admission and she says her mother does want to be a full code. Daughter understands the overall poor prognosis. * Disposition: Inpatient. Expect 4 day stay. Poor prognosis. CHRONIC ISSUES * Bipolar mood disorder: Paliperidone. * Insomnia: Mirtazapine * Depression: Sertraline * Anxiety: Lorazepam * HTN: Doxazosin, losartan. Not on beta leanne. * Insomnia: Observe * Back Pain, Diffuse Degenerative Disc Disease, Moderate thoracic spinal stenosis, Lumbar Neuroforaminal Stenosis: RAGHU Macias MD July 16, 2016 09:41
--- NOTE | 2016-07-16 10:30 | NUR ---
NUTRITION ASSESSMENT Level 1 Patient: Sarah Cullen Age/Sex: 86/F Date Screened: 07-16-16 Weight: 151.3#/68.8 kg Height: 64 inches Primary Diagnosis: acute respiratory distress/heart failure Diet Order: regular Relevant labs: BUN 39, creatinine 1.46, glucose 98 Food allergies: N Nutrition Assessment Criteria Age over 80: 4 points Body Mass Index (BMI) under 19: N Admission Screening Indicates Risk? 6 points Moderate/High Risk Diagnosis: 3 points TPN or PPN: N NPO or clear liquid diet: N Serum Glucose <70 or >180: N Hgb A1c >6.7: N/A Total: 13 points Risk Screen: __ Patient at low nutritional risk based on available data; reevaluate in 5-7 days __ Patient at moderate nutritional risk based on available data; reevaluate in 3-5 days _X_ Patient at high nutritional risk; complete Nutrition Assessment within 48 hours of admission.
[2016-07-16] MEDS ORDERED: DIGOXIN 0.25 MG/ML (LANOXIN) 2 ML AMP IV ONE (10:45)
[2016-07-16] MEDS: SODIUM CHLORIDE FLUSH 10 ML SYR IV PRN ×3 (10:48→16:09)
--- NOTE | 2016-07-16 10:48 | NUR ---
Digoxin 0.25mg IVP administered at this time for persistent tachycardia. Remains asymptomatic. Will continue to monitor.
--- NOTE | 2016-07-16 11:12 | NUR ---
NUTRITION ASSESSMENT Level II Patient: Sarah Cullen Age/Sex: 86/F Date Assessed: 07-16-16 ASSESSMENT Pertinent History: Patient admitted with acute respiratory distress/heart failure and screened at high nutritional risk secondary to elderly age, hx. difficulty swallowing requiring thickened liquids, and weight loss over the past year. PMHx includes hyperlipidemia, HTN, bipolar disorder, anxiety, CHF, falls, a fib and compression fxs. She lives at the alf and was on Hospice a year ago due to poor prognosis, but improved and was DCd from their services. Pt. c/o increased fatigue and weakness recently. At last admission in 2015, pt. had difficulty swallowing with concern for aspiration and was ordered honey thickened liquids. Weight hx. includes 186# in 2015. Meds/Nutrition: Prednisone, Remeron, Lasix Weight: 151.3#/68.8 kg Height: 64 inches Body Mass Index (BMI): 26.0 [place] Body Weight : 120#/54.5 kg % IBW: 126% GASTROINTESTINAL Appetite: fair, eating 25-100% Diet Order: regular Unintentional loss of >10 lbs. in 3 months: N Difficult to chew/swallow: Possibly Diabetes: N Relevant Labs: BUN 39, creatinine 1.46, glucose 98 Calculations for Nutritional Assessment Estimated calorie needs: 25-28 kcals/kg = 1,700-1,900 kcals Estimated protein needs: 1.0-1.3 g/kg = 68-88 g./day DIAGNOSIS 1. Nutrition Diagnosis: Potential for inadequate intake related to hx. dysphagia along with decreased appetite as evidenced by increased fatigue/weakness that can impact appetite and hx. requiring HT liquids. NUTRITIONAL INTERVENTION Goal: Patient will receive adequate nutrition to meet her needs with an emphasis on quality of life and taste preferences for food. Plan: Noted physicians order for regular diet instead of low sodium because of poor prognosis and palliation--I agree with this. Noted pt. is on Lasix for diuresing--if desired, we could change diet to No Added Salt as a compromise with limited sodium but still allows full flavor with meals. Will defer to physician re: this option. With pt.s poor prognosis, nutrition goal should be to emphasize quality of life and taste preferences for food. Will monitor intake and progress with physician. MONITORING & EVALUATION _X_ Monitor patients menu selections _X_ Monitor patients food intake per nursing notes __ Monitor NPO/clear liquid days __ Monitor lab values __ Monitor I&O __ Other
[2016-07-16 11:23] VITALS: BP 109/55
--- NOTE | 2016-07-16 11:27 | NUR ---
Katrina RN at [facility] notified that home dose of Paliperidone 6mg PO is needed. PROBATE JUDGE brings medication (4 tabs in clear zip lock bag). Sent to pharmacy.
[2016-07-16] MEDS: DIGOXIN 0.25 MG/ML (LANOXIN) 2 ML AMP IV SCH ×2 (14:51→20:34)
[2016-07-16 15:38] VITALS: BP 103/61
[2016-07-16] MEDS: cefTRIAXone SODIUM 1,000 MG in SODIUM CHLORIDE 50 ML IV SCH (16:09)
[2016-07-16] MEDS: AZITHROMYCIN VIAL 500 MG in SODIUM CHLORIDE 250 ML IV SCH (16:42)
--- NOTE | 2016-07-16 18:24 | NUR ---
Patient sitting up in recliner consuming supper and conversing with daughters. Denies pain or distress. Telemetry continues to reflect a-fib at a rate of 108-117bpm. Rate does increase into 150's when patient ambulates into bathroom for bm. Recovers after a few minutes at rest. Oxygen titrated to 2L this afternoon by RT. Denies pain or SOA. Call light in reach.
--- NOTE | 2016-07-16 19:15 | NUR ---
Pt up to chair; family at bedside. Denies needs at this time.
[2016-07-16 19:42] VITALS: BP 109/64
--- NOTE | 2016-07-16 20:13 | NUR ---
SpO2 94% on 2Lpm nasal cannula. Pt up in chair.
[2016-07-16] MEDS: doxAzosin 2 MG (CARDURA) TAB PO SCH (20:34)
[2016-07-16] MEDS: MIRTAZAPINE 15 MG (REMERON) TABLET PO SCH (20:34)
[2016-07-16] MEDS: PALIPERIDONE 6 MG PO SCH (20:34)
[2016-07-17 00:06] VITALS: BP 149/80
[2016-07-17 04:27] VITALS: BP 129/73
--- NOTE | 2016-07-17 05:15 | NUR ---
Pt refuses morning blood draw. "I don't want you to take anymore of my blood. I'm tired of it."
--- NOTE | 2016-07-17 06:13 | NUR ---
Pt rests intermittently throughout the night. SL intact. Cont on 2L oxygen per nc.
[2016-07-17 07:30] VITALS: BP 138/82
--- NOTE | 2016-07-17 08:00 | NUR ---
Pt sitting up in bed, eating breakfast. Denies pain. Skin warm, dry, intact. Resprs nonlabored, even on 2L NC. Pt is alert, pleasant, answers questions appropriately. SL intact. Bed alarm on for safety. Pt denies needs.
[2016-07-17] MEDS: DIGOXIN 0.125 MG (LANOXIN) TAB PO SCH (08:36)
[2016-07-17] MEDS: predniSONE 10 MG (DELTASONE) TABLET PO SCH (08:36)
[2016-07-17] MEDS: FUROSEMIDE 100 MG/10 ML (LASIX) VIAL IV SCH (08:36)
[2016-07-17] MEDS: LOSARTAN 50 MG (COZAAR) TABLET PO SCH (08:37)
[2016-07-17] MEDS: SERTRALINE 100 MG (ZOLOFT) TABLET PO SCH (08:37)
[2016-07-17] MEDS: ENOXAPARIN 30 MG/0.3 ML (LOVENOX) SYR SC SCH (08:38)
--- NOTE | 2016-07-17 10:30 | NUR ---
Pt states her neck aches. Denies need for medical intervention, warm blanket provided. Informed pt to call if she would like pain meds. Denies other needs.
--- NOTE | 2016-07-17 11:02 | Progress Note (E) ---
Progress Note SUBJECTIVE Overall HR improved with digoxin. Remains on 2 L. Patent had refused AM lab draw so lab is only just now coming to draw. No major issues overnight. Blood culture remains negative. Weight down 1.2 kg from admit with diuresis. Remains on furosemide. Switching to PO in AM. Has had burnham but removing this today. Tele shows atrial fibrillation with better rate control. On exam, resting in bed , interactive, but she reports feeling a bit more tired today. Updated on findings, plan of care. OBJECTIVE Vital Signs Date Time Temp Pulse Resp B/P Pulse Ox O2 Delivery O2 Flow Rate FiO2 07/17/16 08:00 116 07/17/16 07:30 96.8 16 138/82 94 Nasal cannula 07/17/16 00:06 2.00 I & O 07/16/16 07/17/16 Cumulative From/Thru 19:00 07:00 07/15/16 11:50 - 07/17/16 06:05 Intake Total 600 ml 1906 ml 3306 ml Output Total 1400 ml 875 ml 4675 ml Balance -800 ml 1031 ml -1369 ml GEN: Resting in bed. Awake and interactive. A bit more tired compared to 07/16. HEENT: EOMI, pupils equal, some scleral thinning. Mildly dry oral mucosa. CV: Tachycardia improved. Irregular with blowing murmur, systolic, III/ at LSB. Afib on tele. LUNGS: Diminished bases but faint and intermittent rales in left base have resolved. ABD: Soft, NT/ND with normal bowel sounds. : Burnham (to be removed 07/18.) EXTR: Warm, dry, well-perfused. 2+ BLE edema. INTEG: No rash. Age related changes. NEURO: No focal motor neuro deficit. Psychomotor slowing. Weight: 67.8 kg (69 kg on admit) Lab-Past 14 Days, 35 Results 07/15/16 12:06: Alanine Aminotransferase (ALT/SGPT) 25L, Albumin 3.6, Albumin/Globulin Ratio 1.058L, Alkaline Phosphatase 80, Anion Gap 16.3H, Aspartate Amino Transf (AST/ SGOT) 41H, BUN/Creatinine Ratio 26H, Basophils # (Auto) 0.0, Basophils (%) (Auto ) 0, Blood Urea Nitrogen 35#H, C-Reactive Protein 6.00H, Calcium Level 8.9, Calcium/Ionized Calcium Ratio 3.9, Calculated Osmolality 286, Carbon Dioxide Level 23, Chloride Level 108, Creatinine 1.33H, Eosinophils # (Auto) 0.3, Eosinophils (%) (Auto) 4, Estimat Glomerular Filtration Rate 45.7, Estimated GFR (Non- 37.7, Glucose Level 148#H, Hematocrit 32.50L, Hemoglobin 10.2L, Lactic Acid Level 1.6, Lymphocytes # (Auto) 0.5, Lymphocytes ( %) (Auto) 6L, Magnesium Level 2.1, Mean Corpuscular Hemoglobin 24.3L, Mean Corpuscular Hemoglobin Concent 31.4, Mean Corpuscular Volume 78L, Mean Platelet Volume 10.3H, Monocytes # (Auto) 0.5, Monocytes (%) (Auto) 6, SX-Ynj-P-Type Natriuretic Peptide 9900H, Neutrophils # (Auto) 6.9, Neutrophils (%) (Auto) 84H , Platelet Count 207, Potassium Level 4.0, Red Blood Count 4.19, Red Cell Distribution Width 18.2H, Sodium Level 143, Total Bilirubin 0.7, Total Protein 7.0, Troponin I 0.061, White Blood Count 8.20 07/16/16 05:15: Albumin 3.3L, Anion Gap 11.0, Basophils # (Auto) 0.0, Basophils (%) (Auto) 0, Blood Urea Nitrogen 39H, Calcium Level 8.9, Carbon Dioxide Level 29, Chloride Level 111H, Creatinine 1.46H, Eosinophils # (Auto) 0.6, Eosinophils (%) (Auto) 7H, Estimat Glomerular Filtration Rate 41.0, Estimated GFR (Non- 33.9, Glucose Level 98#, Hematocrit 30.80L, Hemoglobin 9.6L, Lymphocytes # (Auto) 0.7, Lymphocytes (%) (Auto) 9L, Mean Corpuscular Hemoglobin 24.4L, Mean Corpuscular Hemoglobin Concent 31.2, Mean Corpuscular Volume 78L, Mean Platelet Volume 10.9H, Monocytes # (Auto) 0.6, Monocytes (%) ( Auto) 7, Neutrophils # (Auto) 6.2, Neutrophils (%) (Auto) 76H, Platelet Count 215, Potassium Level 3.7, Red Blood Count 3.94L, Red Cell Distribution Width 18.3H, Sodium Level 148, White Blood Count 8.13, Phosphorus Level 4.6# MICRO 07/15 Blood culture Negative to date EKG 07/15 ST with left axis. No electrical alternans. No diffuse ST changes. IMAGING 07/15/2016 ECHO: PENDING. Technologist prelim: Global hypokinesis. Moderate to severe MR. Moderate to severe . Severe TR. Moderate to large pericardia effusion with some septations. 07/15/16 CHEST 1 VIEW, AP/PA ONLY* INDICATION: Shortness of breath. FINDINGS: There are five-lobe interstitial infiltrates, thickening of the central airways , vascular congestion, cardiomegaly, and poor inspiratory volume all reflecting new findings from prior. There is a small left pleural effusion also new. There is no pneumothorax. IMPRESSION: Poor inspiration, small left effusion, cardiomegaly, vascular congestion, and likely pulmonary edema. There is substantial thickening of the central airways and peribronchial cuffing suggestive of an element of reactive airway disease superimposed. REFERENCE 03/22/2015 ECHO: Summary: Biatrial enlargement. RV enlargement. Normal LV wall thickness. Preserved LV systolic function, with EF greater than 60%. Mitral annular calcification with moderate mitral insufficiency. Moderate aortic stenosis with mean gradient 19 mmHg; no significant aortic insufficiency. Moderate tricuspid insufficiency. Moderate pulmonary hypertension with PA systolic pressure 58 mmHg. No pericardial effusion. Lab-Past 14 Days, 35 Results 07/15/16 12:06: Alanine Aminotransferase (ALT/SGPT) 25L, Albumin 3.6, Albumin/Globulin Ratio 1.058L, Alkaline Phosphatase 80, Anion Gap 16.3H, Aspartate Amino Transf (AST/ SGOT) 41H, BUN/Creatinine Ratio 26H, Basophils # (Auto) 0.0, Basophils (%) (Auto ) 0, Blood Urea Nitrogen 35#H, C-Reactive Protein 6.00H, Calcium Level 8.9, Calcium/Ionized Calcium Ratio 3.9, Calculated Osmolality 286, Carbon Dioxide Level 23, Chloride Level 108, Creatinine 1.33H, Eosinophils # (Auto) 0.3, Eosinophils (%) (Auto) 4, Estimat Glomerular Filtration Rate 45.7, Estimated GFR (Non- 37.7, Glucose Level 148#H, Hematocrit 32.50L, Hemoglobin 10.2L, Lactic Acid Level 1.6, Lymphocytes # (Auto) 0.5, Lymphocytes ( %) (Auto) 6L, Magnesium Level 2.1, Mean Corpuscular Hemoglobin 24.3L, Mean Corpuscular Hemoglobin Concent 31.4, Mean Corpuscular Volume 78L, Mean Platelet Volume 10.3H, Monocytes # (Auto) 0.5, Monocytes (%) (Auto) 6, LQ-Xhq-Y-Type Natriuretic Peptide 9900H, Neutrophils # (Auto) 6.9, Neutrophils (%) (Auto) 84H , Platelet Count 207, Potassium Level 4.0, Red Blood Count 4.19, Red Cell Distribution Width 18.2H, Sodium Level 143, Total Bilirubin 0.7, Total Protein 7.0, Troponin I 0.061, White Blood Count 8.20 07/16/16 05:15: Albumin 3.3L, Anion Gap 11.0, Basophils # (Auto) 0.0, Basophils (%) (Auto) 0, Blood Urea Nitrogen 39H, Calcium Level 8.9, Carbon Dioxide Level 29, Chloride Level 111H, Creatinine 1.46H, Eosinophils # (Auto) 0.6, Eosinophils (%) (Auto) 7H, Estimat Glomerular Filtration Rate 41.0, Estimated GFR (Non- 33.9, Glucose Level 98#, Hematocrit 30.80L, Hemoglobin 9.6L, Lymphocytes # (Auto) 0.7, Lymphocytes (%) (Auto) 9L, Mean Corpuscular Hemoglobin 24.4L, Mean Corpuscular Hemoglobin Concent 31.2, Mean Corpuscular Volume 78L, Mean Platelet Volume 10.9H, Monocytes # (Auto) 0.6, Monocytes (%) ( Auto) 7, Neutrophils # (Auto) 6.2, Neutrophils (%) (Auto) 76H, Platelet Count 215, Potassium Level 3.7, Red Blood Count 3.94L, Red Cell Distribution Width 18.3H, Sodium Level 148, White Blood Count 8.13, Phosphorus Level 4.6# ASSESSMENT Sarah Cullen is a 86 year old female admitted from ED 07/15 with acute respiratory failure attributed to acute systolic congestive heart failure, likely related to worsening aortic stenosis. Preliminary echo showed pericardial effusion but her EKG did not show electrical alternans but she had pulsus paradoxus with pressure difference of 15 mmHg. There was some concern for underlying pneumonia as well. She has numerous chronic problems. PLAN * Acute Respiratory Failure: Attributed primarily to heart failure. Pneumonia of concern as well. Treat underlying causes. 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 Prelim echo shows LVEF down to 30%. NT-pro -BNP 9900 on admit. Poor prognosis. Daughter and patient would not want valvular surgery. Medical management with furosemide, afterload reduction. Daily weight, I&O. * Atrial Fibrillation with RVR: New diagnosis? Not previously on rate controlling medication. IV digoxin load, then daily PO digoxin. Monitored tele. * Pericardial Effusion: Considered heart failure, viral/bacterial. Echo prelim says there are some septations. Noted CRP is 6.00. No electrical alternans nor diffuse ST changes on EKG. Mild pulsus paradoxus at 15 mmHg. Monitor closely for signs of tamponade. * Community Acquired Pneumonia: Blood culture negative to date. No sputum for culture. Empiric ceftriaxone, azithromycin. * Acute Kidney Injury: Mild, Cr 1.33 on admit. Monitor with diuresis. * Deconditioning: Deferred PT/OT at first due to heart failure but start therapies 07/17. * F/E/N: General diet. (Deferred sodium restriction because of poor prognosis... palliation.) Peripheral IV. I&O, daily weight. * Prophylaxis: Enoxaparin * Code Status: Full code. Discussed with daughter at time of admission and she says her mother does want to be a full code. Daughter understands the overall poor prognosis. * Disposition: Inpatient. Expect 4 day stay. Poor prognosis overall but noted she has improved with diuresis. F/U labs and CXR 07/18. CHRONIC ISSUES * Bipolar mood disorder: Paliperidone. * Insomnia: Mirtazapine * Depression: Sertraline * Anxiety: Lorazepam * HTN: Doxazosin, losartan. Not on beta leanne. * Insomnia: Observe * Back Pain, Diffuse Degenerative Disc Disease, Moderate thoracic spinal stenosis, Lumbar Neuroforaminal Stenosis: RAGHU Macias MD July 17, 2016 10:52
[2016-07-17 11:10] LABS: BASOPHILS % (AUTO) 1 % (0-2); EOSINOPHILS # (AUTO) 0.7 10^3uL; EOSINOPHILS % (AUTO) 8 % (0-4); LYMPHOCYTES # (AUTO) 0.7 X10^3; MEAN CORPUSCULAR HEMOGLOBIN 24.3 PG (26.0-34.0); MEAN CORPUSCULAR HGB CONC 31.1 g/dL (31.0-37.0); MEAN CORPUSCULAR VOLUME 78 FL (80-100); MEAN PLATELET VOLUME 9.9 FL (6.0-9.5); MONOCYTES # (AUTO) 0.6 X10^3; MONOCYTES % (AUTO) 7 % (3-11); NEUTROPHILS # (AUTO) 6.3 X10^3; NEUTROPHILS % (AUTO) 76 % (51-67); PLATELET COUNT 221 10^3uL (150-450); WHITE BLOOD COUNT 8.27 10^3uL (4.0-11.0)
[2016-07-17 12:03] LABS: ALBUMIN 3.2 g/dL (3.4-5.0); ANION GAP 10.2 MEQ/L (3-15)
--- NOTE | 2016-07-17 14:09 | NUR ---
MULTIDISCIPLINARY MTG/DR. HENDRIX: Pt. admitted on 07/15 with pneumonia and CHF. Pt. also has aortic stenosis. Pt. is currently on 2L oxygen. Pt. has had good diuresis and will switch to po diuretic tomorrow. Pt. refused her am lab draw but later allowed them to obtain a draw. Pt. was evaluated by PT and expected to have a fair to poor prognosis. PT will continue to gently work with her. Pt. expected to be here through the weekend and discharged next week back to the assisted. No discharge needs identified at this time.
--- NOTE | 2016-07-17 15:13 | OT Therapy Evaluation (E) ---
POC Plan of Care Problems Identified: Activity Tolerance, ADLs, Lt UE Strength, Rt UE Strength, Safety Awareness Plan: Evaluation-OT, ADL/Self Care Management, Therapy Exercises, Therapy Activities, Pt/Family/Staff Education Frequency of OT: Five times weekly Duration of OT: Other (4 days ) Therapy to Include: ADL training, Balance with ADLs, Pt/family education, Therapeutic activities, UE strengthing Pt would benefit from skilled occupational therapy services to improve independence with self care tasks. Pt. Aware of Dx and Prognosis: Yes Pt. Aware of Risk & Benefit: Yes Goals: Discussed with patient Short Term Goals STG Time Frame: 4 Days Will Perform Grooming: With Setup/SBA Will Dress Upper Extremity: With Setup/SBA Will Dress Lower Extremity: With Min Assistance Will Perform Funct Transfer: CGA STG #1 Pt will participate in 15 min of ther-ex with 4 or less rest breaks. Inital Evaluation/General Service Date/Time 07/17/16, 15:08 Primary Diagnosis: Treatment Diagnosis: Onset Date: 07/15/16 Start of Care Date: July 17, 2016 Precaution/Isolation: Standard Precautions Fall Level: Low Risk 25-50 Resuscitation Status: Full Code Reason for Referral: Evaluation and Treat Pertinent Medical History: Other (Hyperlipidemia, HTN, obserity, bipolar disorder, anxiety, falls, a-fib, shingles ) Pain Level: 6 Pain Locattion/Comments Low back Oxygen Needed: Nasal cannula O2 liters/minute: 2 Rehabilitation Potential: Fair Potential Based On Patient's extensive medical history Rational for Skilled Treatment: Allow return to home, Deconditioning, Maximize Safety, Prevent Falls Living Status Prior to Admit: Penitentiary (Lives at the [facility] ) Pt reports getting assistance with bathing. Pt reports she is able to dress and toilet herself. Pt reports occasionally walking to dining cates with FWW. Plans Following Discharge: Penitentiary Support Persons: Adult Child Entry Into Home: Level Entry Assist Devices: Front Wheel Walker Comment Pt reports not walking too much. Pt reports using a wheelchair. Current Function Assessment Mental Status Patient Orientation: Person, Place, Situation Mental Status: Alert Cognition Attention: Impaired Memory: Impaired Safety/Judgement: Impaired Visual/Perceptual Skills Glassess: Yes Hearing: Impaired Hand Dominance Hand Dominance: Right ROM/Strength ROM Comment RUE WFL, LUE grossly 100 degrees. Strength Comment Bilateral shoulders 3+/5, bilateral elbows and wrists 4-/5 Bed Mobility/Transfers Bed Mobility: Moderate assist Supine from Sit: Moderate assist ADLs Hand : Feeding Self: Independent Dressing Dressing: Moderate assist Bathing Bathing- Type of Assistance: Moderate Assist Toileting Toilet Hygiene: Moderate Assist CPT/G Codes Time In: 15:04 Time Out: 15:19 Total Minutes: 15 (03/09 eval) CPT Codes: 05317 Eval< 20 minutes (03/09 eval) SARTHAK GUTIERREZ OT July 17, 2016 15:13
[2016-07-17 15:38] VITALS: BP 96/42
--- NOTE | 2016-07-17 16:16 | Physical Therapy Evaluation(E) ---
Plan of Care STG: Plan-Treatment Functional: Trans. Safe w/ AD STG Time Frame: 5 Days Goals Discussed/Agreed: Yes Plan: Balance, Gait & Transfer Training, RROM, Strengthening, Transfer Training , Therapy Excercise Discharge Recommendations: NH placement Aware of Dx and Prognosis: Yes Aware of Risk & Benefit: Yes To be Seen: Daily Thursday-Thursday Initial Evaluation Service Date/Time 07/17/16, 16:14 Primary Diagnosis: (1) HCAP (healthcare-associated pneumonia) ICD Code: J18.9 (2) Pneumonia (3) Physical deconditioning ICD Code: R53.81 (4) Hyponatremia ICD Code: E87.1 (5) Anxiety ICD Code: F41.9 (6) Acute kidney injury ICD Code: N17.9 (7) Hypertension ICD Code: I10 Treatment Diagnosis: (1) Community acquired pneumonia ICD Code: J18.9 (2) Acute respiratory failure ICD Code: J96.00 (3) Acute systolic (congestive) heart failure ICD Code: I50.21 Onset Date: 07/15/2016 Start of Care Date: July 17, 2016 Resuscitation Status: Full Code Precaution/Isolation: Standard Precautions Fall Level: Low Risk 25-50 Initial Assessment Reason for Rehab: Increase Strength, Increase Transfers, Increase Endurance Medical History: Other (Hyperlipidemia, HTN, obserity, bipolar disorder, anxiety, falls, a-fib, shingles ) Prior Level of Function The patient is resident of [facility]. She reports she would ambulated at times be required variable level of assistance. Rehabilitation Potential: Poor (Patient with difficulty staying alert during evaluation this date. ) Rehab Potential Based on Patient's medical status. ROM/Strength Hip Mobility: Right Hip Strength: 3 Left Hip Strength: 3 Knee Flexion Mobility: Right Knee Flexion Strength: 3 Left Knee Flexion Strength: 3 Knee Extension Mobility: Right Knee Extension Strength: 2 Left Knee Extension Strength: 2 Ankle Mobility: Right Ankle Strength: 3 Left Ankle Strength: 3 Assessment/Goals Initial Transfer Assessment Rolling: Not Assessed/NA Sit-Supine: Not Assessed/NA Sitting Edge of Bed: Not Assessed/NA Sit-Stand from Bed: Not Assessed/NA Stand-Sit: Not Assessed/NA Ambulation: Not Assessed/NA Comment Patient was not willing to complete upright sitting or ambulation this date. She did cooperate with long sitting evaluation but had difficulty staying awake throughout evaluation Transfer Short Term Goals Rolling: Minimal Assistance Sit-Supine: Minimal Assistance Sitting Edge of Bed: Supervision or setup Supine-Sit: Minimal Assistance Sit-Stand from bed: Contact Guard Assist Stand-Sit: Contact Guard Assist Ambulation: Contact Guard Assist Distance to Walk in Feet 30 feet with FWW monitoring 02 saturation and heart rate. Coding Time In: 1208 Time Out: 1223 Total Minutes: 15 Charges: [id number] Eval< 20 min SHARON WYATT PT July 17, 2016 16:15
[2016-07-17] MEDS ORDERED: SODIUM CHLORIDE 100 ML ONE (16:42)
[2016-07-17] MEDS: SODIUM CHLORIDE FLUSH 10 ML SYR IV PRN (16:48)
[2016-07-17] MEDS: cefTRIAXone SODIUM 1,000 MG in SODIUM CHLORIDE 50 ML IV SCH (16:48)
[2016-07-17] MEDS: AZITHROMYCIN VIAL 500 MG in SODIUM CHLORIDE 250 ML IV SCH (17:33)
--- NOTE | 2016-07-17 17:56 | NUR ---
Pt has been pleasant and cooperative this shift. IV abx infusing, though pt states Zithromax perez. Will closely monitor. Pt ambulates from bed to chair with SBA and walker. Skin warm, dry, intact. Resprs nonlabored, even on 2L NC. Pt denies needs, call light within reach. Will call for assistance.
[2016-07-17] MEDS: PALIPERIDONE 6 MG PO SCH (20:08)
[2016-07-17] MEDS: MIRTAZAPINE 15 MG (REMERON) TABLET PO SCH (20:08)
[2016-07-17] MEDS: doxAzosin 2 MG (CARDURA) TAB PO SCH (20:08)
[2016-07-18] VITALS: BP 117/77
--- NOTE | 2016-07-18 07:30 | NUR ---
Patient resting in bed upon shift assessment. Arouses easily to verbal stimuli. Alert and oriented X3. Reports mild neck ache but denies need for pain medication. Respirations even and mildly labored on 2L of 02 per nc. Lips appear slightly cyanotic, oxygen saturation 90%. Oxygen increased to 3L. HR irregular at a rate of 67 bpm. Trace edema noted to BLE. Updated on plan of care for shift. Patient agrees to inform nurse if need for pain medication arises. Call light in reach.
[2016-07-18 07:35] VITALS: BP 128/53
[2016-07-18] MEDS: DIGOXIN 0.125 MG (LANOXIN) TAB PO SCH (08:35)
[2016-07-18] MEDS: predniSONE 10 MG (DELTASONE) TABLET PO SCH (08:35)
[2016-07-18] MEDS: FUROSEMIDE 80 MG (LASIX) TABLET PO SCH (08:35)
[2016-07-18] MEDS: SERTRALINE 100 MG (ZOLOFT) TABLET PO SCH (08:35)
[2016-07-18] MEDS: LOSARTAN 50 MG (COZAAR) TABLET PO SCH (08:35)
[2016-07-18] MEDS: ENOXAPARIN 30 MG/0.3 ML (LOVENOX) SYR SC SCH (08:36)
[2016-07-18 09:04] LABS: ALBUMIN 3.1 g/dL (3.4-5.0); ANION GAP 13.5 MEQ/L (3-15)
[2016-07-18 09:11] LABS: BASOPHILS % (AUTO) 0 % (0-2); EOSINOPHILS # (AUTO) 0.6 10^3uL; EOSINOPHILS % (AUTO) 7 % (0-4); LYMPHOCYTES # (AUTO) 0.8 X10^3; MEAN PLATELET VOLUME 10.4 FL (6.0-9.5); MONOCYTES # (AUTO) 0.6 X10^3; MONOCYTES % (AUTO) 6 % (3-11); NEUTROPHILS # (AUTO) 7.3 X10^3; NEUTROPHILS % (AUTO) 79 % (51-67); PLATELET COUNT 248 10^3uL (150-450); WHITE BLOOD COUNT 9.33 10^3uL (4.0-11.0)
--- NOTE | 2016-07-18 09:15 | Diagnostic Imaging Report ---
INDICATION: Heart failure. COMPARISON STUDY: Chest from 3 days ago. TECHNIQUE: Frontal and lateral views of the chest were obtained. FINDINGS: The exam demonstrates stable cardiomegaly. The pulmonary edema and small bilateral effusions have not appreciably changed. There is calcification of the aorta. IMPRESSION: Stable chest with cardiomegaly, pulmonary edema, and small bilateral pleural effusions. Dictated by: Dictated on workstation # [id number]
[2016-07-18 09:21] LABS: MEAN CORPUSCULAR HEMOGLOBIN 24.3 PG (26.0-34.0); MEAN CORPUSCULAR HGB CONC 31.3 g/dL (31.0-37.0); MEAN CORPUSCULAR VOLUME 78 FL (80-100)
--- NOTE | 2016-07-18 11:50 | PT Daily Note Inpatient (E) ---
PT Daily Treatment Service Date/Time 07/18/16, 11:49 Medical Diagnosis: (1) HCAP (healthcare-associated pneumonia) ICD Code: J18.9 (2) Pneumonia (3) Physical deconditioning ICD Code: R53.81 (4) Hyponatremia ICD Code: E87.1 (5) Anxiety ICD Code: F41.9 (6) Acute kidney injury ICD Code: N17.9 (7) Hypertension ICD Code: I10 Physical Therapy: (1) Community acquired pneumonia ICD Code: J18.9 (2) Acute respiratory failure ICD Code: J96.00 (3) Acute systolic (congestive) heart failure ICD Code: I50.21 Precaution/Isolation: Standard Precautions Resuscitation Status: Full Code Fall Level: Low Risk 25-50 Subjective Oxygen Delivery: Nasal cannula O2 liters/minute: 3L Education/Plan Coding No Treatment Provide Reason: Refuses therapy pt c/o neck pain and does not feel like she's up to therapy today, warm blanket around neck, nsg notified, will attempt treatment this MARJORIE Minaya WHOLESALE DIAMOND BROKER July 18, 2016 11:50
--- NOTE | 2016-07-18 15:16 | Progress Note (E) ---
Progress Note SUBJECTIVE Overnight, no major issues reported. Remains on 2-3 L oxygen. BP stable. HR stable. Digoxin level 1.20. Cr improved to 1.27. NT-pro-BNP down about 2000 points from admit. CBC stable. Complains of neck ache at times. Warm blanket applied. Updated patient and daughter at beside on findings and plan of care. Discussed option of hospice especially in light of worsening aortic stenosis. Still waiting on final echo report. OBJECTIVE Vital Signs Date Time Temp Pulse Resp B/P Pulse Ox O2 Delivery O2 Flow Rate FiO2 07/18/16 07:35 98.3 63 16 128/53 90 Nasal cannula 07/17/16 00:06 2.00 I & O 07/17/16 07/18/16 Cumulative From/Thru 19:00 07:00 07/15/16 11:50 - 07/18/16 06:18 Intake Total 1367 ml 1544 ml 6217 ml Output Total 1750 ml 550 ml 6975 ml Balance -383 ml 994 ml -758 ml GEN: Resting in bed. Awake and interactive. A bit more tired compared to 07/16. HEENT: EOMI, pupils equal, some scleral thinning. Mildly dry oral mucosa. CV: Tachycardia resolved. Irregular with blowing murmur, systolic, III/ at LSB. Afib on tele. LUNGS: Diminished bases but faint and intermittent rales in left base have resolved. Rales audible in right base. ABD: Soft, NT/ND with normal bowel sounds. : Guardado EXTR: Warm, dry, well-perfused. 2+ BLE edema. INTEG: No rash. Age related changes. NEURO: No focal motor neuro deficit. Psychomotor slowing. Weight: 67.5 kg (69 kg on admit) Lab-Past 14 Days, 35 Results 07/15/16 12:06: Alanine Aminotransferase (ALT/SGPT) 25L, Albumin 3.6, Albumin/Globulin Ratio 1.058L, Alkaline Phosphatase 80, Anion Gap 16.3H, Aspartate Amino Transf (AST/ SGOT) 41H, BUN/Creatinine Ratio 26H, Basophils # (Auto) 0.0, Basophils (%) (Auto ) 0, Blood Urea Nitrogen 35#H, C-Reactive Protein 6.00H, Calcium Level 8.9, Calcium/Ionized Calcium Ratio 3.9, Calculated Osmolality 286, Carbon Dioxide Level 23, Chloride Level 108, Creatinine 1.33H, Eosinophils # (Auto) 0.3, Eosinophils (%) (Auto) 4, Estimat Glomerular Filtration Rate 45.7, Estimated GFR (Non- 37.7, Glucose Level 148#H, Hematocrit 32.50L, Hemoglobin 10.2L, Lactic Acid Level 1.6, Lymphocytes # (Auto) 0.5, Lymphocytes ( %) (Auto) 6L, Magnesium Level 2.1, Mean Corpuscular Hemoglobin 24.3L, Mean Corpuscular Hemoglobin Concent 31.4, Mean Corpuscular Volume 78L, Mean Platelet Volume 10.3H, Monocytes # (Auto) 0.5, Monocytes (%) (Auto) 6, TL-Iav-H-Type Natriuretic Peptide 9900H, Neutrophils # (Auto) 6.9, Neutrophils (%) (Auto) 84H , Platelet Count 207, Potassium Level 4.0, Red Blood Count 4.19, Red Cell Distribution Width 18.2H, Sodium Level 143, Total Bilirubin 0.7, Total Protein 7.0, Troponin I 0.061, White Blood Count 8.20 07/16/16 05:15: Albumin 3.3L, Anion Gap 11.0, Basophils # (Auto) 0.0, Basophils (%) (Auto) 0, Blood Urea Nitrogen 39H, Calcium Level 8.9, Carbon Dioxide Level 29, Chloride Level 111H, Creatinine 1.46H, Eosinophils # (Auto) 0.6, Eosinophils (%) (Auto) 7H, Estimat Glomerular Filtration Rate 41.0, Estimated GFR (Non- 33.9, Glucose Level 98#, Hematocrit 30.80L, Hemoglobin 9.6L, Lymphocytes # (Auto) 0.7, Lymphocytes (%) (Auto) 9L, Mean Corpuscular Hemoglobin 24.4L, Mean Corpuscular Hemoglobin Concent 31.2, Mean Corpuscular Volume 78L, Mean Platelet Volume 10.9H, Monocytes # (Auto) 0.6, Monocytes (%) ( Auto) 7, Neutrophils # (Auto) 6.2, Neutrophils (%) (Auto) 76H, Platelet Count 215, Potassium Level 3.7, Red Blood Count 3.94L, Red Cell Distribution Width 18.3H, Sodium Level 148, White Blood Count 8.13, Phosphorus Level 4.6# 07/17/16 10:50: Albumin 3.2L, Anion Gap 10.2, Basophils # (Auto) 0.0, Basophils (%) (Auto) 1, Blood Urea Nitrogen 39H, C-Reactive Protein 4.90H, Calcium Level 8.6L, Carbon Dioxide Level 32H, Chloride Level 103, Creatinine 1.40H, Eosinophils # (Auto) 0.7, Eosinophils (%) (Auto) 8H, Estimat Glomerular Filtration Rate 43.0, Estimated GFR (Non- 35.6, Glucose Level 105, Hematocrit 32.20L, Hemoglobin 10.0L, Lymphocytes # (Auto) 0.7, Lymphocytes (%) (Auto) 8L, Mean Corpuscular Hemoglobin 24.3L, Mean Corpuscular Hemoglobin Concent 31.1, Mean Corpuscular Volume 78L, Mean Platelet Volume 9.9H, Monocytes # (Auto) 0.6, Monocytes (%) (Auto) 7, Neutrophils # (Auto) 6.3, Neutrophils (%) (Auto) 76H, Platelet Count 221, Potassium Level 3.5, Red Blood Count 4.12, Red Cell Distribution Width 18.1H, Sodium Level 141, White Blood Count 8.27, Phosphorus Level 3.7 07/18/16 08:20: Albumin 3.1L, Anion Gap 13.5, Basophils # (Auto) 0.0, Basophils (%) (Auto) 0, Blood Urea Nitrogen 34H, Calcium Level 9.0, Carbon Dioxide Level 28, Chloride Level 104, Creatinine 1.27H, Eosinophils # (Auto) 0.6, Eosinophils (%) (Auto) 7H , Estimat Glomerular Filtration Rate 48.2, Estimated GFR (Non- 39.8, Glucose Level 98, Hematocrit 33.50L, Hemoglobin 10.5L, Lymphocytes # (Auto ) 0.8, Lymphocytes (%) (Auto) 8L, Magnesium Level 2.0, Mean Corpuscular Hemoglobin 24.3L, Mean Corpuscular Hemoglobin Concent 31.3, Mean Corpuscular Volume 78L, Mean Platelet Volume 10.4H, Monocytes # (Auto) 0.6, Monocytes (%) ( Auto) 6, BI-Xea-E-Type Natriuretic Peptide 7930H, Neutrophils # (Auto) 7.3, Neutrophils (%) (Auto) 79H, Platelet Count 248, Potassium Level 3.8, Red Blood Count 4.32, Red Cell Distribution Width 18.1H, Sodium Level 142, White Blood Count 9.33, Phosphorus Level 3.9, Digoxin Level 1.20 MICRO 07/15 Blood culture Negative to date EKG 07/15 ST with left axis. No electrical alternans. No diffuse ST changes. IMAGING 07/18/16 CHEST PA/LAT (2 VIEW)* INDICATION: Heart failure. COMPARISON STUDY: Chest from 3 days ago. TECHNIQUE: Frontal and lateral views of the chest were obtained. FINDINGS: The exam demonstrates stable cardiomegaly. The pulmonary edema and small bilateral effusions have not appreciably changed. There is calcification of the aorta. IMPRESSION: Stable chest with cardiomegaly, pulmonary edema, and small bilateral pleural effusions. 07/15/2016 ECHO: PENDING. Technologist prelim: Global hypokinesis. Moderate to severe MR. Moderate to severe . Severe TR. Moderate to large pericardia effusion with some septations. 07/15/16 CHEST 1 VIEW, AP/PA ONLY* INDICATION: Shortness of breath. FINDINGS: There are five-lobe interstitial infiltrates, thickening of the central airways , vascular congestion, cardiomegaly, and poor inspiratory volume all reflecting new findings from prior. There is a small left pleural effusion also new. There is no pneumothorax. IMPRESSION: Poor inspiration, small left effusion, cardiomegaly, vascular congestion, and likely pulmonary edema. There is substantial thickening of the central airways and peribronchial cuffing suggestive of an element of reactive airway disease superimposed. REFERENCE 03/22/2015 ECHO: Summary: Biatrial enlargement. RV enlargement. Normal LV wall thickness. Preserved LV systolic function, with EF greater than 60%. Mitral annular calcification with moderate mitral insufficiency. Moderate aortic stenosis with mean gradient 19 mmHg; no significant aortic insufficiency. Moderate tricuspid insufficiency. Moderate pulmonary hypertension with PA systolic pressure 58 mmHg. No pericardial effusion. Lab-Past 14 Days, 35 Results 07/15/16 12:06: Alanine Aminotransferase (ALT/SGPT) 25L, Albumin 3.6, Albumin/Globulin Ratio 1.058L, Alkaline Phosphatase 80, Anion Gap 16.3H, Aspartate Amino Transf (AST/ SGOT) 41H, BUN/Creatinine Ratio 26H, Basophils # (Auto) 0.0, Basophils (%) (Auto ) 0, Blood Urea Nitrogen 35#H, C-Reactive Protein 6.00H, Calcium Level 8.9, Calcium/Ionized Calcium Ratio 3.9, Calculated Osmolality 286, Carbon Dioxide Level 23, Chloride Level 108, Creatinine 1.33H, Eosinophils # (Auto) 0.3, Eosinophils (%) (Auto) 4, Estimat Glomerular Filtration Rate 45.7, Estimated GFR (Non- 37.7, Glucose Level 148#H, Hematocrit 32.50L, Hemoglobin 10.2L, Lactic Acid Level 1.6, Lymphocytes # (Auto) 0.5, Lymphocytes ( %) (Auto) 6L, Magnesium Level 2.1, Mean Corpuscular Hemoglobin 24.3L, Mean Corpuscular Hemoglobin Concent 31.4, Mean Corpuscular Volume 78L, Mean Platelet Volume 10.3H, Monocytes # (Auto) 0.5, Monocytes (%) (Auto) 6, SL-Tnt-V-Type Natriuretic Peptide 9900H, Neutrophils # (Auto) 6.9, Neutrophils (%) (Auto) 84H , Platelet Count 207, Potassium Level 4.0, Red Blood Count 4.19, Red Cell Distribution Width 18.2H, Sodium Level 143, Total Bilirubin 0.7, Total Protein 7.0, Troponin I 0.061, White Blood Count 8.20 07/16/16 05:15: Albumin 3.3L, Anion Gap 11.0, Basophils # (Auto) 0.0, Basophils (%) (Auto) 0, Blood Urea Nitrogen 39H, Calcium Level 8.9, Carbon Dioxide Level 29, Chloride Level 111H, Creatinine 1.46H, Eosinophils # (Auto) 0.6, Eosinophils (%) (Auto) 7H, Estimat Glomerular Filtration Rate 41.0, Estimated GFR (Non- 33.9, Glucose Level 98#, Hematocrit 30.80L, Hemoglobin 9.6L, Lymphocytes # (Auto) 0.7, Lymphocytes (%) (Auto) 9L, Mean Corpuscular Hemoglobin 24.4L, Mean Corpuscular Hemoglobin Concent 31.2, Mean Corpuscular Volume 78L, Mean Platelet Volume 10.9H, Monocytes # (Auto) 0.6, Monocytes (%) ( Auto) 7, Neutrophils # (Auto) 6.2, Neutrophils (%) (Auto) 76H, Platelet Count 215, Potassium Level 3.7, Red Blood Count 3.94L, Red Cell Distribution Width 18.3H, Sodium Level 148, White Blood Count 8.13, Phosphorus Level 4.6# ASSESSMENT Sarah Cullen is a 86 year old female admitted from ED 07/15 with acute respiratory failure attributed to acute systolic congestive heart failure, likely related to worsening aortic stenosis. Preliminary echo showed pericardial effusion but her EKG did not show electrical alternans but she had pulsus paradoxus with pressure difference of 15 mmHg. There was some concern for underlying pneumonia as well. She has numerous chronic problems. PLAN * Acute Respiratory Failure: Attributed primarily to heart failure. Pneumonia of concern as well. Treat underlying causes. 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 Prelim echo shows LVEF down to 30%. NT-pro -BNP 9900 on admit. Poor prognosis. Daughter and patient would not want valvular surgery. Medical management with furosemide, afterload reduction, digoxin. Daily weight, I&O. Consider hospice. * Atrial Fibrillation with RVR: New diagnosis. Not previously on rate controlling medication. IV digoxin load, then daily PO digoxin. Monitored tele. * Pericardial Effusion: Considered heart failure, viral/bacterial. Echo prelim says there are some septations. Noted CRP is 6.00. No electrical alternans nor diffuse ST changes on EKG. Mild pulsus paradoxus at 15 mmHg. Monitor closely for signs of tamponade. * Community Acquired Pneumonia: Blood culture negative to date. No sputum for culture. Empiric ceftriaxone, azithromycin. * Acute Kidney Injury: Mild, Cr 1.33 on admit. Monitor with diuresis. * Deconditioning: Deferred PT/OT at first due to heart failure but start therapies 07/17. * F/E/N: General diet. (Deferred sodium restriction because of poor prognosis... palliation.) Peripheral IV. I&O, daily weight. Guardado. * Prophylaxis: Enoxaparin * Code Status: Full code. Discussed with daughter at time of admission and she says her mother does want to be a full code. Daughter understands the overall poor prognosis. * Disposition: Inpatient. Expect 4 day stay. Poor prognosis overall but noted she has improved with diuresis. Consider hospice. CHRONIC ISSUES * Bipolar mood disorder: Paliperidone. * Insomnia: Mirtazapine * Depression: Sertraline * Anxiety: Lorazepam * HTN: Doxazosin, losartan. Not on beta leanne. * Insomnia: Observe * Back Pain, Diffuse Degenerative Disc Disease, Moderate thoracic spinal stenosis, Lumbar Neuroforaminal Stenosis: RAGHU Macias MD July 18, 2016 14:59
[2016-07-18 15:18] VITALS: BP 95/52
[2016-07-18] MEDS: cefTRIAXone SODIUM 1,000 MG in SODIUM CHLORIDE 50 ML IV SCH (15:49)
[2016-07-18] MEDS: SODIUM CHLORIDE FLUSH 10 ML SYR IV PRN (15:50)
--- NOTE | 2016-07-18 17:30 | OT Daily Note Inpatient (E) ---
OT Daily Treatment Service Date/Time 07/18/16, 17:29 Primary Diagnosis: (1) HCAP (healthcare-associated pneumonia) ICD Code: J18.9 (2) Pneumonia (3) Physical deconditioning ICD Code: R53.81 (4) Hyponatremia ICD Code: E87.1 (5) Anxiety ICD Code: F41.9 (6) Acute kidney injury ICD Code: N17.9 (7) Hypertension ICD Code: I10 Treatment Diagnosis: Onset Date: 07/15/16 Start of Care Date: July 17, 2016 Precaution/Isolation: Standard Precautions Fall Level: Low Risk 25-50 Resuscitation Status: Full Code Oxygen Needed: Nasal cannula O2 liters/minute: 3L Current Function Assessment Cognition Attention: Impaired Memory: Impaired Safety/Judgement: Impaired Visual/Perceptual Skills Glassess: Yes Hearing: Impaired Hand Dominance Hand Dominance: Right Education/Assessment Rehabilitation Potential: Fair POC Plan of Care Problems Identified: Activity Tolerance, ADLs, Lt UE Strength, Rt UE Strength, Safety Awareness Plan: Evaluation-OT, ADL/Self Care Management, Therapy Exercises, Therapy Activities, Pt/Family/Staff Education Frequency of OT: Five times weekly Duration of OT: Other (4 days ) Therapy to Include: ADL training, Balance with ADLs, Pt/family education, Therapeutic activities, UE strengthing Pt. Aware of Dx and Prognosis: Yes Pt. Aware of Risk & Benefit: Yes Goals: Discussed with patient Short Term Goals STG Time Frame: 4 Days Will Perform Grooming: With Setup/SBA Will Dress Upper Extremity: With Setup/SBA Will Dress Lower Extremity: With Min Assistance Will Perform Funct Transfer: CGA STG #1 Pt will participate in 15 min of ther-ex with 4 or less rest breaks. CPT/G Codes No Treatment Provide Reason: Other (Unable to see patient this date due to therapist schedule. ) SARTHAK GUTIERREZ OT July 18, 2016 17:30
--- NOTE | 2016-07-18 18:27 | NUR ---
Uneventful day shift. Patient does not participate with therapies due to neck ache and fatigue. Does not want to get up to chair for meals. Refuses need for pain medication and states "just let me rest". Repositioned for comfort. Sitting up in bed consuming supper at this time. Denies pain. Guardado draining clear yellow urine. 3L of 02 remains intact. Call light in reach.
[2016-07-18] MEDS: MIRTAZAPINE 15 MG (REMERON) TABLET PO SCH (21:02)
[2016-07-18] MEDS: doxAzosin 2 MG (CARDURA) TAB PO SCH (21:02)
[2016-07-18] MEDS: PALIPERIDONE 6 MG PO SCH (21:02)
[2016-07-19 00:08] VITALS: BP 109/58
--- NOTE | 2016-07-19 04:31 | NUR ---
1950-Pt is resting in bed, reports that she is tired, and just wants to sleep. This RN gives pt her PM medications so she can go to bed at this time. SL is patent, no redness, swelling, or s/s of infection noted at this time. Geo is to DD, call light is in reach, will continue to monitor. 0430-Pt is resting in bed asleep, does not appear in pain or discomfort at this time. Call light is in reach, will continue to monitor.
[2016-07-19 07:51] VITALS: BP 129/78
[2016-07-19] MEDS: SERTRALINE 100 MG (ZOLOFT) TABLET PO SCH (08:10)
[2016-07-19] MEDS: DIGOXIN 0.125 MG (LANOXIN) TAB PO SCH (08:11)
[2016-07-19] MEDS: LOSARTAN 50 MG (COZAAR) TABLET PO SCH (08:11)
[2016-07-19] MEDS: FUROSEMIDE 80 MG (LASIX) TABLET PO SCH (08:12)
[2016-07-19] MEDS: predniSONE 10 MG (DELTASONE) TABLET PO SCH (08:12)
[2016-07-19] MEDS: ENOXAPARIN 30 MG/0.3 ML (LOVENOX) SYR SC SCH (08:13)
--- NOTE | 2016-07-19 12:22 | Progress Note (E) ---
Progress Note SUBJECTIVE Overnight, no major issues. Continued diuresis noted but weight about the same. Still on 3 L. More tired over the last few days but today, up to chair, awake, interactive. Is hungry. Discussed burnham and plan to remove it today. OBJECTIVE Vital Signs Date Time Temp Pulse Resp B/P Pulse Ox O2 Delivery O2 Flow Rate FiO2 07/19/16 07:51 97.7 97 18 129/78 94 Nasal cannula 07/17/16 00:06 2.00 I & O 07/18/16 07/19/16 Cumulative From/Thru 19:00 07:00 07/15/16 11:50 - 07/19/16 05:57 Intake Total 400 ml 615 ml 7232 ml Output Total 900 ml 1000 ml 8875 ml Balance -500 ml -385 ml -1643 ml GEN: Resting in chair. More awake and interactive. HEENT: EOMI, pupils equal, some scleral thinning. Mildly dry oral mucosa. CV: Irregular with blowing murmur, systolic, III/ at LSB. Afib on tele. LUNGS: Diminished bases but faint and intermittent rales in left base have resolved. Rales audible in right base, mild. ABD: Soft, NT/ND with normal bowel sounds. : [place] EXTR: Warm, dry, well-perfused. 2+ BLE edema. INTEG: No rash. Age related changes. NEURO: No focal motor neuro deficit. Psychomotor slowing. Weight: 67.9 kg (69 kg on admit) Lab-Past 14 Days, 35 Results 07/15/16 12:06: Alanine Aminotransferase (ALT/SGPT) 25L, Albumin 3.6, Albumin/Globulin Ratio 1.058L, Alkaline Phosphatase 80, Anion Gap 16.3H, Aspartate Amino Transf (AST/ SGOT) 41H, BUN/Creatinine Ratio 26H, Basophils # (Auto) 0.0, Basophils (%) (Auto ) 0, Blood Urea Nitrogen 35#H, C-Reactive Protein 6.00H, Calcium Level 8.9, Calcium/Ionized Calcium Ratio 3.9, Calculated Osmolality 286, Carbon Dioxide Level 23, Chloride Level 108, Creatinine 1.33H, Eosinophils # (Auto) 0.3, Eosinophils (%) (Auto) 4, Estimat Glomerular Filtration Rate 45.7, Estimated GFR (Non- 37.7, Glucose Level 148#H, Hematocrit 32.50L, Hemoglobin 10.2L, Lactic Acid Level 1.6, Lymphocytes # (Auto) 0.5, Lymphocytes ( %) (Auto) 6L, Magnesium Level 2.1, Mean Corpuscular Hemoglobin 24.3L, Mean Corpuscular Hemoglobin Concent 31.4, Mean Corpuscular Volume 78L, Mean Platelet Volume 10.3H, Monocytes # (Auto) 0.5, Monocytes (%) (Auto) 6, EA-Sqh-T-Type Natriuretic Peptide 9900H, Neutrophils # (Auto) 6.9, Neutrophils (%) (Auto) 84H , Platelet Count 207, Potassium Level 4.0, Red Blood Count 4.19, Red Cell Distribution Width 18.2H, Sodium Level 143, Total Bilirubin 0.7, Total Protein 7.0, Troponin I 0.061, White Blood Count 8.20 07/16/16 05:15: Albumin 3.3L, Anion Gap 11.0, Basophils # (Auto) 0.0, Basophils (%) (Auto) 0, Blood Urea Nitrogen 39H, Calcium Level 8.9, Carbon Dioxide Level 29, Chloride Level 111H, Creatinine 1.46H, Eosinophils # (Auto) 0.6, Eosinophils (%) (Auto) 7H, Estimat Glomerular Filtration Rate 41.0, Estimated GFR (Non- 33.9, Glucose Level 98#, Hematocrit 30.80L, Hemoglobin 9.6L, Lymphocytes # (Auto) 0.7, Lymphocytes (%) (Auto) 9L, Mean Corpuscular Hemoglobin 24.4L, Mean Corpuscular Hemoglobin Concent 31.2, Mean Corpuscular Volume 78L, Mean Platelet Volume 10.9H, Monocytes # (Auto) 0.6, Monocytes (%) ( Auto) 7, Neutrophils # (Auto) 6.2, Neutrophils (%) (Auto) 76H, Platelet Count 215, Potassium Level 3.7, Red Blood Count 3.94L, Red Cell Distribution Width 18.3H, Sodium Level 148, White Blood Count 8.13, Phosphorus Level 4.6# 07/17/16 10:50: Albumin 3.2L, Anion Gap 10.2, Basophils # (Auto) 0.0, Basophils (%) (Auto) 1, Blood Urea Nitrogen 39H, C-Reactive Protein 4.90H, Calcium Level 8.6L, Carbon Dioxide Level 32H, Chloride Level 103, Creatinine 1.40H, Eosinophils # (Auto) 0.7, Eosinophils (%) (Auto) 8H, Estimat Glomerular Filtration Rate 43.0, Estimated GFR (Non- 35.6, Glucose Level 105, Hematocrit 32.20L, Hemoglobin 10.0L, Lymphocytes # (Auto) 0.7, Lymphocytes (%) (Auto) 8L, Mean Corpuscular Hemoglobin 24.3L, Mean Corpuscular Hemoglobin Concent 31.1, Mean Corpuscular Volume 78L, Mean Platelet Volume 9.9H, Monocytes # (Auto) 0.6, Monocytes (%) (Auto) 7, Neutrophils # (Auto) 6.3, Neutrophils (%) (Auto) 76H, Platelet Count 221, Potassium Level 3.5, Red Blood Count 4.12, Red Cell Distribution Width 18.1H, Sodium Level 141, White Blood Count 8.27, Phosphorus Level 3.7 07/18/16 08:20: Albumin 3.1L, Anion Gap 13.5, Basophils # (Auto) 0.0, Basophils (%) (Auto) 0, Blood Urea Nitrogen 34H, Calcium Level 9.0, Carbon Dioxide Level 28, Chloride Level 104, Creatinine 1.27H, Eosinophils # (Auto) 0.6, Eosinophils (%) (Auto) 7H , Estimat Glomerular Filtration Rate 48.2, Estimated GFR (Non- 39.8, Glucose Level 98, Hematocrit 33.50L, Hemoglobin 10.5L, Lymphocytes # (Auto ) 0.8, Lymphocytes (%) (Auto) 8L, Magnesium Level 2.0, Mean Corpuscular Hemoglobin 24.3L, Mean Corpuscular Hemoglobin Concent 31.3, Mean Corpuscular Volume 78L, Mean Platelet Volume 10.4H, Monocytes # (Auto) 0.6, Monocytes (%) ( Auto) 6, XY-Slw-O-Type Natriuretic Peptide 7930H, Neutrophils # (Auto) 7.3, Neutrophils (%) (Auto) 79H, Platelet Count 248, Potassium Level 3.8, Red Blood Count 4.32, Red Cell Distribution Width 18.1H, Sodium Level 142, White Blood Count 9.33, Phosphorus Level 3.9, Digoxin Level 1.20 MICRO 07/15 Blood culture Negative to date EKG 07/15 ST with left axis. No electrical alternans. No diffuse ST changes. IMAGING 07/18/16 CHEST PA/LAT (2 VIEW)* INDICATION: Heart failure. COMPARISON STUDY: Chest from 3 days ago. TECHNIQUE: Frontal and lateral views of the chest were obtained. FINDINGS: The exam demonstrates stable cardiomegaly. The pulmonary edema and small bilateral effusions have not appreciably changed. There is calcification of the aorta. IMPRESSION: Stable chest with cardiomegaly, pulmonary edema, and small bilateral pleural effusions. 07/15/2016 ECHO: PENDING. Technologist prelim: Global hypokinesis. Moderate to severe MR. Moderate to severe . Severe TR. Moderate to large pericardia effusion with some septations. 07/15/16 CHEST 1 VIEW, AP/PA ONLY* INDICATION: Shortness of breath. FINDINGS: There are five-lobe interstitial infiltrates, thickening of the central airways , vascular congestion, cardiomegaly, and poor inspiratory volume all reflecting new findings from prior. There is a small left pleural effusion also new. There is no pneumothorax. IMPRESSION: Poor inspiration, small left effusion, cardiomegaly, vascular congestion, and likely pulmonary edema. There is substantial thickening of the central airways and peribronchial cuffing suggestive of an element of reactive airway disease superimposed. REFERENCE 03/22/2015 ECHO: Summary: Biatrial enlargement. RV enlargement. Normal LV wall thickness. Preserved LV systolic function, with EF greater than 60%. Mitral annular calcification with moderate mitral insufficiency. Moderate aortic stenosis with mean gradient 19 mmHg; no significant aortic insufficiency. Moderate tricuspid insufficiency. Moderate pulmonary hypertension with PA systolic pressure 58 mmHg. No pericardial effusion. ASSESSMENT Sarah Cullen is a 86 year old female admitted from ED 07/15 with acute respiratory failure attributed to acute systolic congestive heart failure, likely related to worsening aortic stenosis. Preliminary echo showed pericardial effusion but her EKG did not show electrical alternans but she had pulsus paradoxus with pressure difference of 15 mmHg. There was some concern for underlying pneumonia as well. She has numerous chronic problems. PLAN * Acute Respiratory Failure: Attributed primarily to heart failure. Pneumonia of concern as well. Treat underlying causes. 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 Prelim echo shows LVEF down to 30%. NT-pro -BNP 9900 on admit. Poor prognosis. Daughter and patient would not want valvular surgery. Medical management with furosemide, afterload reduction, digoxin. Daily weight, I&O. Consider hospice. * Atrial Fibrillation with RVR: New diagnosis. Not previously on rate controlling medication. IV digoxin load, then daily PO digoxin which has been effective. * Pericardial Effusion: Considered heart failure, viral/bacterial. Echo prelim says there are some septations. Noted CRP is 6.00. No electrical alternans nor diffuse ST changes on EKG. Mild pulsus paradoxus at 15 mmHg. Monitor closely for signs of tamponade. * Community Acquired Pneumonia: Blood culture negative to date. No sputum for culture. Empiric ceftriaxone, azithromycin. * Acute Kidney Injury: Mild, Cr 1.33 on admit, peak 1.46, improved to 1.27. Monitor with diuresis. * Deconditioning: Deferred PT/OT at first due to heart failure but start therapies 07/17. * F/E/N: General diet. (Deferred sodium restriction because of poor prognosis... palliation.) Peripheral IV. I&O, daily weight. Burnham. * Prophylaxis: Enoxaparin * Code Status: Full code. Discussed with daughter at time of admission and she says her mother does want to be a full code. Daughter understands the overall poor prognosis. * Disposition: Inpatient. Expect 4 day stay. Poor prognosis overall but noted she has improved with diuresis. Consider hospice. CHRONIC ISSUES * Bipolar mood disorder: Paliperidone. * Insomnia: Mirtazapine * Depression: Sertraline * Anxiety: Lorazepam * HTN: Doxazosin, losartan. Not on beta leanne. * Insomnia: Observe * Back Pain, Diffuse Degenerative Disc Disease, Moderate thoracic spinal stenosis, Lumbar Neuroforaminal Stenosis: RAGHU Macias MD July 19, 2016 09:35
[2016-07-19 15:56] VITALS: BP 109/61
[2016-07-19] MEDS: SODIUM CHLORIDE FLUSH 10 ML SYR IV PRN (16:54)
[2016-07-19] MEDS: cefTRIAXone SODIUM 1,000 MG in SODIUM CHLORIDE 50 ML IV SCH (16:54)
--- NOTE | 2016-07-19 18:27 | NUR ---
Pt. has been in chair and is back in bed. She has c/o neck pain - would like a pain pill, but not until bedtime.
[2016-07-19] MEDS: HYDROcodone/APAP 5 MG/325 MG (NORCO) TAB PO PRN (19:30)
[2016-07-19] MEDS: doxAzosin 2 MG (CARDURA) TAB PO SCH (20:30)
[2016-07-19] MEDS: MIRTAZAPINE 15 MG (REMERON) TABLET PO SCH (20:30)
[2016-07-19] MEDS: PALIPERIDONE 6 MG PO SCH (20:30)
[2016-07-20 00:05] VITALS: BP 143/70
--- NOTE | 2016-07-20 04:23 | NUR ---
1920-Pt request to use restroom, this RN assist pt to restroom, she complains of generalized pain, rates 7/10 at this time. Gave 1 tab PO of [place] 5/325mg for discomfort. Pt bumped hand on rail in bathroom and her SL came out. Is not receiving IV medications at this time, so this RN did not restart IV. Geo was DC'd earlier today. Assisted to recliner at this time. Call light is in reach, will continue to monitor. 0420-Pt is resting in bed asleep, does not appear in pain or discomfort at this time. Call light is in reach, will continue to monitor.
[2016-07-20 08:00] VITALS: BP 137/75
[2016-07-20] MEDS: predniSONE 10 MG (DELTASONE) TABLET PO SCH (08:39)
[2016-07-20] MEDS: LOSARTAN 50 MG (COZAAR) TABLET PO SCH (08:39)
[2016-07-20] MEDS: DIGOXIN 0.125 MG (LANOXIN) TAB PO SCH (08:39)
[2016-07-20] MEDS: FUROSEMIDE 80 MG (LASIX) TABLET PO SCH ×2 (08:40→14:48)
[2016-07-20] MEDS: SERTRALINE 100 MG (ZOLOFT) TABLET PO SCH (08:40)
[2016-07-20] MEDS: ENOXAPARIN 30 MG/0.3 ML (LOVENOX) SYR SC SCH (08:40)
--- NOTE | 2016-07-20 13:43 | Progress Note (E) ---
Progress Note SUBJECTIVE Guardado removed yesterday. Has voided since. Weight creeping up. Increasing furosemide to BID dosing. Blood culture remains negative. Checking chemistry and NT-pro-BNP again in AM. On exam, breathing is unlabored. Updated her on findings, plan of care. OBJECTIVE Vital Signs Date Time Temp Pulse Resp B/P Pulse Ox O2 Delivery O2 Flow Rate FiO2 07/20/16 08:00 97.2 94 18 137/75 95 Nasal cannula 07/17/16 00:06 2.00 I & O 07/19/16 07/20/16 Cumulative From/Thru 19:00 07:00 07/15/16 11:50 - 07/20/16 05:46 Intake Total 419 ml 1175 ml 8826 ml Output Total 700 ml 9575 ml Balance -281 ml 1175 ml -749 ml GEN: Resting in bed. Awake, interactive. HEENT: EOMI, pupils equal, some scleral thinning. Mildly dry oral mucosa. CV: Irregular with blowing murmur, systolic, III/ at LSB. Afib on tele. LUNGS: Diminished bases but faint and intermittent rales in left base have resolved. Rales audible in right base, mild. ABD: Soft, NT/ND with normal bowel sounds. : Guardado removed. EXTR: Warm, dry, well-perfused. 2+ BLE edema. INTEG: No rash. Age related changes. NEURO: No focal motor neuro deficit. Psychomotor slowing. Weight: 68.0 kg (69 kg on admit) Lab-Past 14 Days, 35 Results 07/15/16 12:06: Alanine Aminotransferase (ALT/SGPT) 25L, Albumin 3.6, Albumin/Globulin Ratio 1.058L, Alkaline Phosphatase 80, Anion Gap 16.3H, Aspartate Amino Transf (AST/ SGOT) 41H, BUN/Creatinine Ratio 26H, Basophils # (Auto) 0.0, Basophils (%) (Auto ) 0, Blood Urea Nitrogen 35#H, C-Reactive Protein 6.00H, Calcium Level 8.9, Calcium/Ionized Calcium Ratio 3.9, Calculated Osmolality 286, Carbon Dioxide Level 23, Chloride Level 108, Creatinine 1.33H, Eosinophils # (Auto) 0.3, Eosinophils (%) (Auto) 4, Estimat Glomerular Filtration Rate 45.7, Estimated GFR (Non- 37.7, Glucose Level 148#H, Hematocrit 32.50L, Hemoglobin 10.2L, Lactic Acid Level 1.6, Lymphocytes # (Auto) 0.5, Lymphocytes ( %) (Auto) 6L, Magnesium Level 2.1, Mean Corpuscular Hemoglobin 24.3L, Mean Corpuscular Hemoglobin Concent 31.4, Mean Corpuscular Volume 78L, Mean Platelet Volume 10.3H, Monocytes # (Auto) 0.5, Monocytes (%) (Auto) 6, XC-Mrq-S-Type Natriuretic Peptide 9900H, Neutrophils # (Auto) 6.9, Neutrophils (%) (Auto) 84H , Platelet Count 207, Potassium Level 4.0, Red Blood Count 4.19, Red Cell Distribution Width 18.2H, Sodium Level 143, Total Bilirubin 0.7, Total Protein 7.0, Troponin I 0.061, White Blood Count 8.20 07/16/16 05:15: Albumin 3.3L, Anion Gap 11.0, Basophils # (Auto) 0.0, Basophils (%) (Auto) 0, Blood Urea Nitrogen 39H, Calcium Level 8.9, Carbon Dioxide Level 29, Chloride Level 111H, Creatinine 1.46H, Eosinophils # (Auto) 0.6, Eosinophils (%) (Auto) 7H, Estimat Glomerular Filtration Rate 41.0, Estimated GFR (Non- 33.9, Glucose Level 98#, Hematocrit 30.80L, Hemoglobin 9.6L, Lymphocytes # (Auto) 0.7, Lymphocytes (%) (Auto) 9L, Mean Corpuscular Hemoglobin 24.4L, Mean Corpuscular Hemoglobin Concent 31.2, Mean Corpuscular Volume 78L, Mean Platelet Volume 10.9H, Monocytes # (Auto) 0.6, Monocytes (%) ( Auto) 7, Neutrophils # (Auto) 6.2, Neutrophils (%) (Auto) 76H, Platelet Count 215, Potassium Level 3.7, Red Blood Count 3.94L, Red Cell Distribution Width 18.3H, Sodium Level 148, White Blood Count 8.13, Phosphorus Level 4.6# 07/17/16 10:50: Albumin 3.2L, Anion Gap 10.2, Basophils # (Auto) 0.0, Basophils (%) (Auto) 1, Blood Urea Nitrogen 39H, C-Reactive Protein 4.90H, Calcium Level 8.6L, Carbon Dioxide Level 32H, Chloride Level 103, Creatinine 1.40H, Eosinophils # (Auto) 0.7, Eosinophils (%) (Auto) 8H, Estimat Glomerular Filtration Rate 43.0, Estimated GFR (Non- 35.6, Glucose Level 105, Hematocrit 32.20L, Hemoglobin 10.0L, Lymphocytes # (Auto) 0.7, Lymphocytes (%) (Auto) 8L, Mean Corpuscular Hemoglobin 24.3L, Mean Corpuscular Hemoglobin Concent 31.1, Mean Corpuscular Volume 78L, Mean Platelet Volume 9.9H, Monocytes # (Auto) 0.6, Monocytes (%) (Auto) 7, Neutrophils # (Auto) 6.3, Neutrophils (%) (Auto) 76H, Platelet Count 221, Potassium Level 3.5, Red Blood Count 4.12, Red Cell Distribution Width 18.1H, Sodium Level 141, White Blood Count 8.27, Phosphorus Level 3.7 07/18/16 08:20: Albumin 3.1L, Anion Gap 13.5, Basophils # (Auto) 0.0, Basophils (%) (Auto) 0, Blood Urea Nitrogen 34H, Calcium Level 9.0, Carbon Dioxide Level 28, Chloride Level 104, Creatinine 1.27H, Eosinophils # (Auto) 0.6, Eosinophils (%) (Auto) 7H , Estimat Glomerular Filtration Rate 48.2, Estimated GFR (Non- 39.8, Glucose Level 98, Hematocrit 33.50L, Hemoglobin 10.5L, Lymphocytes # (Auto ) 0.8, Lymphocytes (%) (Auto) 8L, Magnesium Level 2.0, Mean Corpuscular Hemoglobin 24.3L, Mean Corpuscular Hemoglobin Concent 31.3, Mean Corpuscular Volume 78L, Mean Platelet Volume 10.4H, Monocytes # (Auto) 0.6, Monocytes (%) ( Auto) 6, UC-Oeq-X-Type Natriuretic Peptide 7930H, Neutrophils # (Auto) 7.3, Neutrophils (%) (Auto) 79H, Platelet Count 248, Potassium Level 3.8, Red Blood Count 4.32, Red Cell Distribution Width 18.1H, Sodium Level 142, White Blood Count 9.33, Phosphorus Level 3.9, Digoxin Level 1.20 bilateral effusions have not appreciably changed. There is calcification of the aorta. IMPRESSION: Stable chest with cardiomegaly, pulmonary edema, and small bilateral pleural effusions. 07/15/2016 ECHO: PENDING. Technologist prelim: Global hypokinesis. Moderate to severe MR. Moderate to severe . Severe TR. Moderate to large pericardia effusion with some septations. 07/15/16 CHEST 1 VIEW, AP/PA ONLY* INDICATION: Shortness of breath. FINDINGS: There are five-lobe interstitial infiltrates, thickening of the central airways , vascular congestion, cardiomegaly, and poor inspiratory volume all reflecting new findings from prior. There is a small left pleural effusion also new. There is no pneumothorax. IMPRESSION: Poor inspiration, small left effusion, cardiomegaly, vascular congestion, and likely pulmonary edema. There is substantial thickening of the central airways and peribronchial cuffing suggestive of an element of reactive airway disease superimposed. REFERENCE 03/22/2015 ECHO: Summary: Biatrial enlargement. RV enlargement. Normal LV wall thickness. Preserved LV systolic function, with EF greater than 60%. Mitral annular calcification with moderate mitral insufficiency. Moderate aortic stenosis with mean gradient 19 mmHg; no significant aortic insufficiency. Moderate tricuspid insufficiency. Moderate pulmonary hypertension with PA systolic pressure 58 mmHg. No pericardial effusion. ASSESSMENT Sarah Cullen is a 86 year old female admitted from ED 07/15 with acute respiratory failure attributed to acute systolic congestive heart failure, likely related to worsening aortic stenosis. Preliminary echo showed pericardial effusion but her EKG did not show electrical alternans but she had pulsus paradoxus with pressure difference of 15 mmHg. There was some concern for underlying pneumonia as well. She has numerous chronic problems. PLAN * Acute Respiratory Failure: Attributed primarily to heart failure. Pneumonia of concern as well. Treat underlying causes. 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 Prelim echo shows LVEF down to 30%. NT-pro -BNP 9900 on admit. Poor prognosis. Daughter and patient would not want valvular surgery. Medical management with furosemide, afterload reduction, digoxin. Increased furosemide to BID 07/20. Daily weight, I&O. Consider hospice. * Atrial Fibrillation with RVR: New diagnosis. Not previously on rate controlling medication. IV digoxin load, then daily PO digoxin which has been effective. * Pericardial Effusion: Considered heart failure, viral/bacterial. Echo prelim says there are some septations. Noted CRP is 6.00. No electrical alternans nor diffuse ST changes on EKG. Mild pulsus paradoxus at 15 mmHg. Monitor closely for signs of tamponade. * Community Acquired Pneumonia: Blood culture negative to date. No sputum for culture. Completed empiric courses of ceftriaxone, azithromycin. * Acute Kidney Injury: Mild, Cr 1.33 on admit, peak 1.46, improved to 1.27. Monitor with diuresis. * Deconditioning: Deferred PT/OT at first due to heart failure but start therapies 07/17. * F/E/N: General diet. (Deferred sodium restriction because of poor prognosis... palliation.) Peripheral IV. I&O, daily weight. Guardado. * Prophylaxis: Enoxaparin * Code Status: Full code. Discussed with daughter at time of admission and she says her mother does want to be a full code. Daughter understands the overall poor prognosis. * Disposition: Inpatient. Poor prognosis overall but noted she has improved with diuresis. Consider hospice. If she does not decide on hospice, likely have neared endpoint for this hospitalization and can go back to [place] with current therapies. CHRONIC ISSUES * Bipolar mood disorder: Paliperidone. * Insomnia: Mirtazapine * Depression: Sertraline * Anxiety: Lorazepam * HTN: Doxazosin, losartan. Not on beta leanne. * Insomnia: Observe * Back Pain, Diffuse Degenerative Disc Disease, Moderate thoracic spinal stenosis, Lumbar Neuroforaminal Stenosis: RAGHU Macias MD July 20, 2016 13:31
[2016-07-20 15:35] VITALS: BP 106/50
[2016-07-20] MEDS: PALIPERIDONE 6 MG PO SCH (21:00)
[2016-07-20] MEDS: HYDROcodone/APAP 5 MG/325 MG (NORCO) TAB PO PRN (21:09)
[2016-07-20] MEDS: MIRTAZAPINE 15 MG (REMERON) TABLET PO SCH (21:09)
[2016-07-20] MEDS: doxAzosin 2 MG (CARDURA) TAB PO SCH (21:09)
[2016-07-21] VITALS: BP 103/56
--- NOTE | 2016-07-21 05:19 | NUR ---
0-Pt is sitting up in bed visiting with daughter and watching tv. Does request pain medication with her bedtime meds. Denies needs at this time. Call light is in reach, will continue to monitor. 2034-Gave 1 tab PO of [place] 5/325mg for generalized discomfort. 419-Pt is resting in bed asleep, does not appear in pain or discomfort at this time. Call light is in reach, will continue to monitor.
[2016-07-21 07:01] LABS: ALBUMIN 3.2 g/dL (3.4-5.0); ANION GAP 11.2 MEQ/L (3-15)
--- NOTE | 2016-07-21 07:20 | NUR ---
Patient sitting up in bed upon shift assessment. Alert and oriented X3. Reports chronic neck pain rated 2/10 on pain scale. States "I just slept wrong". Massage provided. Denies need for pain medication. Respirations even and non-labored on 3L of 02 per nc. HR irregular at a rate of 73 bpm. Ambulates to bathroom with standby assist and walker and voids clear yellow urine. No SOA with exertion. Sitting up in recliner at this time. Updated on plan of care for shift. Skin and oral care performed. Call light in reach.
[2016-07-21] MEDS: DIGOXIN 0.125 MG (LANOXIN) TAB PO SCH (08:36)
[2016-07-21] MEDS: SERTRALINE 100 MG (ZOLOFT) TABLET PO SCH (08:36)
[2016-07-21] MEDS: LOSARTAN 50 MG (COZAAR) TABLET PO SCH (08:36)
[2016-07-21] MEDS: FUROSEMIDE 80 MG (LASIX) TABLET PO SCH ×2 (08:36→13:56)
[2016-07-21] MEDS: predniSONE 10 MG (DELTASONE) TABLET PO SCH (08:36)
[2016-07-21] MEDS: ENOXAPARIN 30 MG/0.3 ML (LOVENOX) SYR SC SCH (08:37)
--- NOTE | 2016-07-21 11:40 | Progress Note (E) ---
Progress Note RRR, S1 S2 audible07/21/16 ,11:33 and the chest x-ray is unchanged. bnp is falling Mental Status Patient Orientation: Unable to Assess Mental Status: Agitated Cognition Attention: Impaired Memory: Absent Safety/Judgement: Impaired Problem Solving: Impaired Cognition Task Performed: Problem solving Visual/Perceptual Skills Visual Precep Skills Training: L neglect (difficult to acess) Glassess: Yes Hearing: Impaired Hand Dominance Hand Dominance: Right Skin and Positioning Positioning: Place arm on pillow, Place pillow at side, Repositions self Neurological Coordination: Moderately impaired Balance: Physical help to sit Endurance Activity Endurance: Becomes SOB, Fair Bed Mobility/Transfers Bed Mobility: Moderate assist Supine from Sit: Moderate assist Sit to Stand: Moderate assist Chair Transfer: Maximum assist Sitting Balance: Maximum assist Dressing Dressing: Maximum assist Clothing Retrieval: Moderate assist Bathing Bathing Assistive Device: Bath bench Toileting Toilet Hygiene: Maximum Assist Additional Assessment/Comments bnp falling she is running significant fluid deprivation will begin to add back minimal fluids and track what she is able to take in po as well . CHRISTY MAY DO July 21, 2016 11:38
[2016-07-21 11:44] VITALS: BP 90/53
[2016-07-21 16:02] VITALS: BP 96/64
--- NOTE | 2016-07-21 18:17 | NUR ---
Patient sitting up in recliner consuming supper. Sits up for all meals. Ambulating to bathroom with standby assist, steady gate. Denies SOA with exertion. Continues to report generalized neck pain but does not want pain medication. Warm blanket provided. Pleasant and cooperative with cares. Call light in reach.
--- NOTE | 2016-07-21 18:50 | NUR ---
Received report from Jesusita Slater RN. Assumed patient care.
[2016-07-21] MEDS: doxAzosin 2 MG (CARDURA) TAB PO SCH (20:57)
[2016-07-21] MEDS: MIRTAZAPINE 15 MG (REMERON) TABLET PO SCH (20:57)
[2016-07-21] MEDS: PALIPERIDONE 6 MG PO SCH (21:00)
[2016-07-22 00:40] VITALS: BP 111/62
[2016-07-22 08:27] VITALS: BP 139/59
[2016-07-22] MEDS: LOSARTAN 50 MG (COZAAR) TABLET PO SCH (08:34)
[2016-07-22] MEDS: ENOXAPARIN 30 MG/0.3 ML (LOVENOX) SYR SC SCH (08:34)
[2016-07-22] MEDS: FUROSEMIDE 80 MG (LASIX) TABLET PO SCH (08:35)
[2016-07-22] MEDS: predniSONE 10 MG (DELTASONE) TABLET PO SCH (08:35)
[2016-07-22] MEDS: DIGOXIN 0.125 MG (LANOXIN) TAB PO SCH (08:35)
[2016-07-22] MEDS: SERTRALINE 100 MG (ZOLOFT) TABLET PO SCH (08:36)
[2016-07-22] MEDS ORDERED: DGX.125T PO (08:37)
[2016-07-22] MEDS ORDERED: FURO40TA4 PO (08:37)
--- NOTE | 2016-07-22 09:32 | NUR ---
Pt. has been sitting up in chair, tolerated breakfast without n/v. She denies pain this morning. Lungs CTA, denies dyspnea. O2 remains on at 3L/NC. Pt. denies needs at this time.
--- NOTE | 2016-07-22 10:00 | Discharge Instructions (E) ---
Discharge Instructions Instructions Continue Medications as prescribed Contact Dr Ruiz for any questions or concerns Activity Instructions as tolerates Doctor's Appointment Appt Dr Fred Ruiz 1 week Discharge Diet: Salt (sodium) restricted CHRISTY MAY DO July 22, 2016 10:00
--- NOTE | 2016-07-22 10:01 | Discharge Summary (E FT) ---
Discharge Summary (E FT) Admit Date July 15, 2016 at 13:50 Discharge Date July 22, 2016 Admitting Provider Rajendra Maier MD Primary Care Provider Tarik Ruiz MD Attending Provider Rajendra Maier MD Consulting Provider Hospital Course Summary PCP: Tarik Ruiz MD CC: Shortness of breath HPI Sarah Cullen is a 86 year old female admitted from ED 07/15 where [facility]. Reportedly up to bathroom last night and was dyspneic with SpO2 70% on room air. Placed on 4 L oxygen which helped but this AM again had low SpO2 with activity (getting dressed.) Has increased fatigue, has cough. Denied chest pain. In ED, afebril with HR 113 , RR 20, BP 104/53, SpO2 86% RA. CBC notable for mild anemia. WBC was not elevated but 84% N. On chemistry, Cr 1.33, troponin 0.061, NT-pro-BNP 9900. Urine was not checked. CXR suggestive of failure, perhaps also some reactive airway disease (see report.) No therapies were given in the ED. She was admitted for further management. On arrival to unit, patient is somnolent and snoring. Stirs to exam. Smiles and is pleasant and interactive. Denies pain. Denies feeling fevered or chilled. Endorses cough that is not productive. Feels short of breath, she says. Feels she just has no energy. She nods off readily and doesn't provide much more detail. Daughter arrives and provides additional history. Says her mother was on hospice after her hospitalization here 1 year ago. However, she improved during that time and was discharged from their service after 3 months. [facility] Quality of life has been OK. Daughter noticed a change on 07/06 (Mother's Day) that patient was a bit agitated. Had been taking paliperidone and with this mood change, PCP increased dose. Staff at [facility] called daughter today because of new leg edema, fatigue, weakness, and dyspnea. I & O Cumulative 07/21/16 07/22/16 Cumulative From/Thru 19:00 07:00 07/15/16 11:50 - 07/21/16 21:57 Intake Total 1293 ml 1616 ml 25171 ml Output Total 200 ml 850 ml 90277 ml Balance 1093 ml 766 ml 126 ml Vital Signs Date Time Temp Pulse Resp B/P Pulse Ox O2 Delivery O2 Flow Rate FiO2 07/22/16 08:27 97.0 78 17 139/59 90 Nasal cannula 07/22/16 00:40 3.00 GEN: Resting in bed. Awake, interactive. HEENT: EOMI, pupils equal, some scleral thinning. Moist oral mucosa. CV: Irregular with blowing murmur, systolic, III/ at LSB. Afib LUNGS: Clear bilaterally, no wheezes ABD: Soft, NT/ND with normal bowel sounds. : Guardado removed. EXTR: Warm, dry, well-perfused INTEG: No rash. Age related changes. NEURO: No focal motor neuro deficit. Psychomotor slowing. Weight: 68.0 kg (69 kg on admit) Lab-Past 14 Days, 35 Results 07/15/16 12:06: Alanine Aminotransferase (ALT/SGPT) 25L, Albumin 3.6, Albumin/Globulin Ratio 1.058L, Alkaline Phosphatase 80, Anion Gap 16.3H, Aspartate Amino Transf (AST/ SGOT) 41H, BUN/Creatinine Ratio 26H, Basophils # (Auto) 0.0, Basophils (%) (Auto ) 0, Blood Urea Nitrogen 35#H, C-Reactive Protein 6.00H, Calcium Level 8.9, Calcium/Ionized Calcium Ratio 3.9, Calculated Osmolality 286, Carbon Dioxide Level 23, Chloride Level 108, Creatinine 1.33H, Eosinophils # (Auto) 0.3, Eosinophils (%) (Auto) 4, Estimat Glomerular Filtration Rate 45.7, Estimated GFR (Non- 37.7, Glucose Level 148#H, Hematocrit 32.50L, Hemoglobin 10.2L, Lactic Acid Level 1.6, Lymphocytes # (Auto) 0.5, Lymphocytes ( %) (Auto) 6L, Magnesium Level 2.1, Mean Corpuscular Hemoglobin 24.3L, Mean Corpuscular Hemoglobin Concent 31.4, Mean Corpuscular Volume 78L, Mean Platelet Volume 10.3H, Monocytes # (Auto) 0.5, Monocytes (%) (Auto) 6, AT-Qld-C-Type Natriuretic Peptide 9900H, Neutrophils # (Auto) 6.9, Neutrophils (%) (Auto) 84H , Platelet Count 207, Potassium Level 4.0, Red Blood Count 4.19, Red Cell Distribution Width 18.2H, Sodium Level 143, Total Bilirubin 0.7, Total Protein 7.0, Troponin I 0.061, White Blood Count 8.20 07/16/16 05:15: Albumin 3.3L, Anion Gap 11.0, Basophils # (Auto) 0.0, Basophils (%) (Auto) 0, Blood Urea Nitrogen 39H, Calcium Level 8.9, Carbon Dioxide Level 29, Chloride Level 111H, Creatinine 1.46H, Eosinophils # (Auto) 0.6, Eosinophils (%) (Auto) 7H, Estimat Glomerular Filtration Rate 41.0, Estimated GFR (Non- 33.9, Glucose Level 98#, Hematocrit 30.80L, Hemoglobin 9.6L, Lymphocytes # (Auto) 0.7, Lymphocytes (%) (Auto) 9L, Mean Corpuscular Hemoglobin 24.4L, Mean Corpuscular Hemoglobin Concent 31.2, Mean Corpuscular Volume 78L, Mean Platelet Volume 10.9H, Monocytes # (Auto) 0.6, Monocytes (%) ( Auto) 7, Neutrophils # (Auto) 6.2, Neutrophils (%) (Auto) 76H, Platelet Count 215, Potassium Level 3.7, Red Blood Count 3.94L, Red Cell Distribution Width 18.3H, Sodium Level 148, White Blood Count 8.13, Phosphorus Level 4.6# 07/17/16 10:50: Albumin 3.2L, Anion Gap 10.2, Basophils # (Auto) 0.0, Basophils (%) (Auto) 1, Blood Urea Nitrogen 39H, C-Reactive Protein 4.90H, Calcium Level 8.6L, Carbon Dioxide Level 32H, Chloride Level 103, Creatinine 1.40H, Eosinophils # (Auto) 0.7, Eosinophils (%) (Auto) 8H, Estimat Glomerular Filtration Rate 43.0, Estimated GFR (Non- 35.6, Glucose Level 105, Hematocrit 32.20L, Hemoglobin 10.0L, Lymphocytes # (Auto) 0.7, Lymphocytes (%) (Auto) 8L, Mean Corpuscular Hemoglobin 24.3L, Mean Corpuscular Hemoglobin Concent 31.1, Mean Corpuscular Volume 78L, Mean Platelet Volume 9.9H, Monocytes # (Auto) 0.6, Monocytes (%) (Auto) 7, Neutrophils # (Auto) 6.3, Neutrophils (%) (Auto) 76H, Platelet Count 221, Potassium Level 3.5, Red Blood Count 4.12, Red Cell Distribution Width 18.1H, Sodium Level 141, White Blood Count 8.27, Phosphorus Level 3.7 07/18/16 08:20: Albumin 3.1L, Anion Gap 13.5, Basophils # (Auto) 0.0, Basophils (%) (Auto) 0, Blood Urea Nitrogen 34H, Calcium Level 9.0, Carbon Dioxide Level 28, Chloride Level 104, Creatinine 1.27H, Eosinophils # (Auto) 0.6, Eosinophils (%) (Auto) 7H , Estimat Glomerular Filtration Rate 48.2, Estimated GFR (Non- 39.8, Glucose Level 98, Hematocrit 33.50L, Hemoglobin 10.5L, Lymphocytes # (Auto ) 0.8, Lymphocytes (%) (Auto) 8L, Magnesium Level 2.0, Mean Corpuscular Hemoglobin 24.3L, Mean Corpuscular Hemoglobin Concent 31.3, Mean Corpuscular Volume 78L, Mean Platelet Volume 10.4H, Monocytes # (Auto) 0.6, Monocytes (%) ( Auto) 6, HD-Iui-D-Type Natriuretic Peptide 7930H, Neutrophils # (Auto) 7.3, Neutrophils (%) (Auto) 79H, Platelet Count 248, Potassium Level 3.8, Red Blood Count 4.32, Red Cell Distribution Width 18.1H, Sodium Level 142, White Blood Count 9.33, Phosphorus Level 3.9, Digoxin Level 1.20 Laboratory Results Past 48 Hrs 07/21/16 05:28: Albumin 3.2L, Anion Gap 11.2, Blood Urea Nitrogen 42H, Calcium Level 8.9, Carbon Dioxide Level 31H, Chloride Level 103, Creatinine 1.25H, Estimat Glomerular Filtration Rate 49.1, Estimated GFR (Non- 40.5, Glucose Level 81, Magnesium Level 2.0, XF-Pft-F-Type Natriuretic Peptide 6630H, Phosphorus Level 4.3, Potassium Level 3.8, Sodium Level 141 bilateral effusions have not appreciably changed. There is calcification of the aorta. IMPRESSION: Stable chest with cardiomegaly, pulmonary edema, and small bilateral pleural effusions. 07/15/2016 ECHO: PENDING. Technologist prelim: Global hypokinesis. Moderate to severe MR. Moderate to severe . Severe TR. Moderate to large pericardia effusion with some septations. 07/15/16 CHEST 1 VIEW, AP/PA ONLY* INDICATION: Shortness of breath. FINDINGS: There are five-lobe interstitial infiltrates, thickening of the central airways , vascular congestion, cardiomegaly, and poor inspiratory volume all reflecting new findings from prior. There is a small left pleural effusion also new. There is no pneumothorax. IMPRESSION: Poor inspiration, small left effusion, cardiomegaly, vascular congestion, and likely pulmonary edema. There is substantial thickening of the central airways and peribronchial cuffing suggestive of an element of reactive airway disease superimposed. REFERENCE 03/22/2015 ECHO: Summary: Biatrial enlargement. RV enlargement. Normal LV wall thickness. Preserved LV systolic function, with EF greater than 60%. Mitral annular calcification with moderate mitral insufficiency. Moderate aortic stenosis with mean gradient 19 mmHg; no significant aortic insufficiency. Moderate tricuspid insufficiency. Moderate pulmonary hypertension with PA systolic pressure 58 mmHg. No pericardial effusion. ASSESSMENT Sarah Cullen is a 86 year old female admitted from ED 07/15 with acute respiratory failure attributed to acute systolic congestive heart failure, likely related to worsening aortic stenosis. Preliminary echo showed pericardial effusion but her EKG did not show electrical alternans but she had pulsus paradoxus with pressure difference of 15 mmHg. There was some concern for underlying pneumonia as well. She has numerous chronic problems. PLAN * Acute Respiratory Failure: Attributed primarily to heart failure. Treat underlying causes. Shes doing well on oxygen 3L/NC continuous. 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 Prelim echo shows LVEF down to 30%. NT-pro -BNP 9900 on admit. Poor prognosis. Daughter and patient would not want valvular surgery. Medical management with furosemide, afterload reduction, digoxin. 07/20. Daily weight, I&O. * Atrial Fibrillation with RVR: New diagnosis. Not previously on rate controlling medication. IV digoxin load, then daily PO digoxin which has been effective. * Pericardial Effusion: Considered heart failure, viral/bacterial. Echo prelim says there are some septations. Noted CRP is 6.00. No electrical alternans nor diffuse ST changes on EKG. Mild pulsus paradoxus at 15 mmHg. Monitor closely for signs of tamponade. * Community Acquired Pneumonia: Blood culture negative to date. No sputum for culture. Completed empiric courses of ceftriaxone, azithromycin. * Acute Kidney Injury: Mild, Cr 1.33 on admit, peak 1.46, improved to 1.27. Monitor with diuresis. * Deconditioning: Deferred PT/OT at first due to heart failure but start therapies 07/17. * F/E/N: General diet. (Deferred sodium restriction because of poor prognosis... palliation.) Peripheral IV. I&O, daily weight. Guardado. * Prophylaxis: Enoxaparin * Code Status: Full code. Discussed with daughter at time of admission and she says her mother does want to be a full code. Daughter understands the overall poor prognosis. * Disposition: Inpatient. Poor prognosis overall but noted she has improved with diuresis. No hospice at this time. She can go back to [place] with current therapies. [place] on Oxygen 3L/NC as she desats with less. CHRONIC ISSUES * Bipolar mood disorder: Paliperidone. * Insomnia: Mirtazapine * Depression: Sertraline * Anxiety: Lorazepam * HTN: Doxazosin, losartan. Not on beta leanne. * Insomnia: Observe * Back Pain, Diffuse Degenerative Disc Disease, Moderate thoracic spinal stenosis, Lumbar Neuroforaminal Stenosis: [place] Discharge Disposition To [facility] today Appt Dr Ruiz in 1 week New Medications: Digoxin (Lanoxin) 0.125 Mg Tab 0.125 MG PO DAILY #30 TAB Changed Medications: Furosemide (Furosemide) 40 Mg Tablet 40 MG PO DAILY #30 Ref 1 TAB (Changed from: BID@0900,1200; Refills: ) Continued Medications: Acetaminophen (Acetaminophen) 325 Mg Tablet 325-650 MG PO Q4H PRN PAIN #0 Ref 0 TAB Cetirizine HCl (Zyrtec) 10 Mg Tablet 10 MG PO HS TAB Dextran 70/Hypromellose (Artificial Tears Eye Drops) 1 Each Droperette 1 EACH OU QID DROP Dimethicone/Colloidal Oatmeal (Aveeno Daily Moisturizing Lot) 226 Gm Lotion 1 APPLIC TOP BID RASH Doxazosin Mesylate (Doxazosin Mesylate) 2 Mg Tablet 2 MG PO HS Eucerin (Eucerin) 2 Oz Cr 1 APPLIC TOP UD PRN PRN Hydrocodone/Acetaminophen ([place] 5mg/325mg) 1 Each Tablet 1 TAB PO DAILY Ref 0 TAB Lorazepam (Lorazepam) 0.5 Mg Tablet 0.5 MG PO Q2H PRN ANXIETY Ref 0 TAB Losartan Potassium (Losartan Potassium) 50 Mg Tablet 50 MG PO DAILY Magnesium Hydroxide (Milk of Magnesia 400mg/5ml) 400 Mg/5 Ml Oral.susp 30 ML PO BID PRN CONSTIPATION #0 Ref 0 ML Mirtazapine (Mirtazapine) 15 Mg Tablet 15 MG PO HS Paliperidone (Paliperidone ER) 6 Mg Tab.er.24 6 MG PO HS Potassium Chloride (Potassium Chloride) 10 Meq Tablet.er 20 MEQ PO DAILY@1800 Prednisone (Deltasone) 10 Mg Tab 10 MG PO DAILY Salsalate (Salsalate) 500 Mg Tablet 500 MG PO TID TAB Sertraline HCl (Zoloft) 100 Mg Tablet 150 MG PO DAILY Tramadol HCl (Tramadol HCl) 50 Mg Tablet 50 MG PO BID PRN PAIN Ref 0 TAB Discontinued Medications: Hydrocodone/Acetaminophen (ED- [place] 5/325mg #6) 1 Each Tablet 1 TAB PO Q6H PRN PAIN #30 Ref 0 TAB Follow up Instructions Continue Medications as prescribed Contact Dr Ruiz for any questions or concerns Copies to: End of Report . CHRISTY MAY DO July 22, 2016 10:01
--- NOTE | 2016-07-22 10:19 | OT Daily Note Inpatient (E) ---
OT Daily Treatment Service Date/Time 07/22/16, 10:12 Primary Diagnosis: (1) HCAP (healthcare-associated pneumonia) ICD Code: J18.9 (2) Pneumonia (3) Physical deconditioning ICD Code: R53.81 (4) Hyponatremia ICD Code: E87.1 (5) Anxiety ICD Code: F41.9 (6) Acute kidney injury ICD Code: N17.9 (7) Hypertension ICD Code: I10 Treatment Diagnosis: Onset Date: 07/15/16 Start of Care Date: July 17, 2016 Precaution/Isolation: Standard Precautions Fall Level: Low Risk 25-50 Resuscitation Status: Full Code Current Activity: Agrees to participate, Up in chair I didnt have any pain until they gave me this shot! NAILS massaged area to decrease stinging. Oxygen Needed: Nasal cannula O2 liters/minute: 3L Current Function Assessment Mental Status Patient Orientation: Confused (required verbal reminders x 4 of name of NAILS) Cognition Attention: Impaired Memory: Absent Safety/Judgement: Impaired Problem Solving: Impaired Cognition Task Performed: Problem solving Visual/Perceptual Skills Visual Precep Skills Training: L neglect (difficult to acess) Glassess: Yes Hearing: Impaired Hand Dominance Hand Dominance: Right Neurological Balance: Limited dynamic balance (Leans to Left side with sitting) ADLs Hand : Feeding Self: SBA (Pt required assist for opening containers at breakfast) Grooming: Grooming Position: In chair Grooming Status: Minimum assist (Pt required assist for combing back of hair , SBA for washing hands/face, v/c for inserting dentures after rinsing with SBA) , Verbal cues Grooming Assistance With-: Combing hair, Denture care, Washing face (set up) Education/Assessment Teaching Method: Practice/repetition, Verbal Readiness to Learn: Good Treatment Tolerance: Ricardo trmnt w/o complaints Problems Impacting Treatment: Confusion Rehabilitation Potential: Fair Pt states she never performs denture care as someone always takes care of it for her. Pt sat a breakfast and able to eat approx 50% of her meal. Requires min A and set up for grooming. POC Plan of Care Problems Identified: Activity Tolerance, ADLs, Lt UE Strength, Rt UE Strength, Safety Awareness Plan: Evaluation-OT, ADL/Self Care Management, Therapy Exercises, Therapy Activities, Pt/Family/Staff Education Frequency of OT: Five times weekly Duration of OT: Other (4 days ) Therapy to Include: ADL training, Balance with ADLs, Pt/family education, Therapeutic activities, UE strengthing Pt. Aware of Dx and Prognosis: Yes Pt. Aware of Risk & Benefit: Yes Goals: Discussed with patient Short Term Goals STG Time Frame: 4 Days Will Perform Grooming: With Setup/SBA Will Dress Upper Extremity: With Setup/SBA Will Dress Lower Extremity: With Min Assistance Will Perform Funct Transfer: CGA STG #1 Pt will participate in 15 min of ther-ex with 4 or less rest breaks. CPT/G Codes Time In: 831 Time Out: 849 Total Minutes: 17 CPT Codes: 11561 ADL EA Chitra Barclay July 22, 2016 10:19
--- NOTE | 2016-07-22 11:02 | NUR ---
SpO2 82% on Room Air, 96% on 3Lpm cannula. Remains on 3Lpm Cannula.
--- NOTE | 2016-07-22 11:51 | NUR ---
Report given to Elizabeth Adler at [facility] 805. They will be here to transport pt. at 1300.
--- NOTE | 2016-07-22 13:24 | NUR ---
Pt. discharged to [facility] at this time via , accompanied by [facility] transport staff. All belongings sent with pt.
--- NOTE | 2016-07-23 07:35 | Physical Therapy Evaluation(E) ---
Discharge Summary Service Date/Time 07/23/16, 07:33 Primary Diagnosis: (1) HCAP (healthcare-associated pneumonia) ICD Code: J18.9 (2) Pneumonia (3) Physical deconditioning ICD Code: R53.81 (4) Hyponatremia ICD Code: E87.1 (5) Anxiety ICD Code: F41.9 (6) Acute kidney injury ICD Code: N17.9 (7) Hypertension ICD Code: I10 Treatment Diagnosis: (1) Community acquired pneumonia ICD Code: J18.9 (2) Acute respiratory failure ICD Code: J96.00 (3) Acute systolic (congestive) heart failure ICD Code: I50.21 Onset Date: 07/15/2016 Start of Service Date: July 17, 2016 Summary of Progress Summary Comment The patient had variable participation in therapy activities due to her medical state. Patient did not meet therapy goals as she was discharged from facility back to [facility] prior to being reassessed by PT. Distance Walked in Feet Patient did not participate in ambulation with therapy staff. Transfer STG and Status Rolling: Minimal Assistance Goal Status at Discharge: Goal Not Met Sit-Supine: Minimal Assistance Goal Status at Discharge: Goal Not Met Sitting Edge of Bed: Supervision or setup Goal Status at Discharge: Goal Partially Met Supine-Sit: Minimal Assistance Sit-Stand from bed: Contact Guard Assist Goal Status at Discharge: Goal Not Met Stand-Sit: Contact Guard Assist Goal Status at Discharge: Goal Not Met Ambulation: Contact Guard Assist Goal Status at Discharge: Goal Not Met Plan of Care Goals and Status STG: Plan-Treatment Functional: Trans. Safe w/ AD Goal Status at Discharge: Goal Not Met Discharge Recommendations: NH placement Service Recommendations: DC Services (Patient was unable to participate in therapy sessions regularly. Patient was discharged from facility to terminal gauger care at [facility]. ) SHARON WYATT PT July 23, 2016 07:35
--- NOTE | 2016-07-23 17:35 | OT Therapy Evaluation (E) ---
Discharge Summary Service Date/Time 07/23/16, 17:34 Primary Diagnosis: (1) HCAP (healthcare-associated pneumonia) ICD Code: J18.9 (2) Pneumonia (3) Physical deconditioning ICD Code: R53.81 (4) Hyponatremia ICD Code: E87.1 (5) Anxiety ICD Code: F41.9 (6) Acute kidney injury ICD Code: N17.9 (7) Hypertension ICD Code: I10 Treatment Diagnosis: Onset Date: 07/15/16 Start of Care Date: July 17, 2016 Summary of Discharge Therapy Comments Patient was seen for one occupational therapy session following initial evaluation. Unable to reassess all goals secondary to early discharge. Pt was transferred from facility back to [facility] prior to being reassessed by OT. Short Term Goals/Status Will Perform Grooming: With Setup/SBA (NOT MET.) Will Dress Upper Extremity: With Setup/SBA (NOT MET.) Will Dress Lower Extremity: With Min Assistance (NOT MET.) Will Perform Functional Transf: CGA (NOT MET.) STG #1 Pt will participate in 15 min of ther-ex with 4 or less rest breaks. NOT MET. Discharge Recommendations: NH Placement SARTHAK GUTIERREZ OT July 23, 2016 17:35
== END 2016-07-22 13:25 | DRG 189 ==
LOC: ED 11:39 → MED/SURG 13:50
PROVIDERS: ADMIT Internal Medicine; ATTEND Internal Medicine
DX: J96.00 Acute respiratory failure, unspecified whether with hypoxia or hypercapnia (principal); I50.23 Acute on chronic systolic (congestive) heart failure; J18.9 Pneumonia, unspecified organism; I31.3 Pericardial effusion (noninflammatory); N17.9 Acute kidney failure, unspecified; I35.0 Nonrheumatic aortic (valve) stenosis; I48.91 Unspecified atrial fibrillation; I11.0 Hypertensive heart disease with heart failure; F31.9 Bipolar disorder, unspecified; F41.9 Anxiety disorder, unspecified; R00.8 Other abnormalities of heart beat
CPT/HCPCS: 36415; 71010; 71020; 80053; 80069; 80162; 83605; 83735; 83880; 84484; 85025; 86140; 87040; 93005; 93010; 93306; 94760; 99284; 99285